=== PATIENT | female | born 1955 | race Caucasian/White ===

== ENCOUNTER 2016-06-24 00:49 | Observation (INO) | payer OTHER ==
[~2016-06-24 00:49] MED LIST: AMBI10TA PO; CYCL-36 PO; HYDR-3535 PO; LANSO15 PO; LORA1TAB PO; METO25 PO; OXYB5TAB PO; PROM25TA5 PO; RANI150 PO; REGL10TA5 PO; SENN1TAB11 PO; TRAZ50TA4 PO
[2016-06-24 00:57] VITALS: BP 148/87; PULSE 88; RESP 18; TEMP 98.4; O2SAT 98
[2016-06-24] MEDS ORDERED: HYDROmorphone HCL PF 1 MG/ML VIAL IV PUSH ONE (01:15)
[2016-06-24] MEDS ORDERED: ONDANSETRON HCL 4 MG/2 ML VIAL IV PUSH ONE (01:15)
[2016-06-24] MEDS ORDERED: LISI-515 PO (01:16)
[2016-06-24] MEDS ORDERED: METO50TA PO (01:16)
--- NOTE | 2016-06-24 02:03 | PD ---
HPI Chief Complaint: Back/ Neck Pain or Injury Time Seen by Provider: 01:58 Travel History International Travel<30 days: No Contact w/Intl Traveler<30days: No History of Present Illness HPI 60-year-old white female presents to emergency Department with complaints of intractable back pain. Patient states that she has been taking Percocet at home without relief. He has had a recent injury while lifting furniture earlier during the week. She also had a recent slip and fall within the furniture. She has exacerbation of pain bending over into the washing machine. She states the pain is in the left side radiating to her left groin. The pain is been a 10 out of 10. There are no alleviating factors. Worse with movement. No recent illness. Denies any fever or chills. No urinary or stool incontinence. No focal weakness. Positive tingling into the left groin. PFSH Past Medical History Arthritis: Yes Autoimmune Disease: No Anxiety: Yes Depression: Yes Cancer: Yes (LEFT BREAST) Cardiovascular Problems: No Diabetes: Yes Patient Takes Glucophage: No Diminished Hearing: No Endocrine: No Gastrointestinal Disorders: Yes (GERD) GERD: Yes Genitourinary: No Hepatitis: No Hiatal Hernia: No Hypertension: Yes Immune Disorder: No Musculoskeletal: Yes (RHEUMATOID ARTHRITIS, DDD NECK) Neurologic: Yes (MIGRAINES) Psychiatric: Yes (ANXIETY) Reproductive: No Respiratory: No Thyroid Disease: No Tetanus Vaccination: Unknown ?: Not Past Surgical History AICD: No Body Medical Devices: PICC LINE RIGHT ARM Gynecologic Surgery: Yes (HYSTERECTOMY) Hysterectomy: Yes Joint Replacement: Yes (RIGHT KNEE) Oral Surgery: Yes (TONSILLECTOMY) Pacemaker: No Thoracic Surgery: Yes (LEFT MASTECTOMY) Tonsillectomy: Yes Other Surgery: Yes (ABRAHAN MASTECTOMY) Social History Alcohol Use: No Tobacco Use: No Substance Use: No Allergies-Medications (Allergen,Severity, Reaction): Coded Allergies: Codeine (Verified Allergy, Unknown, 06/24/16) NAUSEA Reported Meds & Prescriptions Reported Meds & Active Scripts Active Reported Lisinopril 20 Mg Tab 20 Mg PO DAILY Metoprolol Tartrate 50 Mg Tab 50 Mg PO DAILY Lortab 10 mg/325 mg (Hydrocodone/Acetaminophen 10 mg/325 mg) 1 Tab Tab 1 Tab PO Q4-6H PRN Metoprolol Tartrate 25 mg (Metoprolol Tartrate) 25 Mg Tab 1 Tab PO AFTERNOON Lorazepam 1 Mg Tab 1 Mg PO QID Oxybutynin Chloride Er (Oxybutynin Chloride) 5 Mg Tab 5 Mg PO DAILY@0600 Zantac 150 Mg Tab (Ranitidine HCl) 150 Mg Tab 150 Mg PO BID PRN Senna Plus 8.6-50 mg (Senna/Docusate Sodium) 1 Tab Tab 2 Tab PO HS Trazodone Hcl (Trazodone HCl) 50 Mg Tab 100 Mg PO HS Flexeril (Cyclobenzaprine HCl) 10 Mg Tab 10 Mg PO HS Ambien (Zolpidem Tartrate) 10 Mg Tab 10 Mg PO HS Prevacid 15 Mg Solutab (Lansoprazole) 15 Mg Tab 30 Mg PO DAILY Phenergan (Promethazine HCl) 25 Mg Tab 25 Mg PO Q6 PRN Reglan (Metoclopramide HCl) 10 Mg Tab 10 Mg PO BID Review of Systems Except as stated in HPI: all other systems reviewed are Neg General / Constitutional: No: Fever, Chills Eyes: No: Blurred Vision HENT: No: Neck Stiffness, Neck Pain Cardiovascular: No: Chest Pain or Discomfort, Palpitations Respiratory: No: Cough, Shortness of Breath Gastrointestinal: No: Nausea, Vomiting Genitourinary: No: Dysuria, Hematuria, Incontinence Musculoskeletal: Positive: Arthralgias, Limited ROM, Pain Skin: No Rash Neurologic: Positive: Paresthesia, No: Weakness Physical Exam Narrative GENERAL: Well-developed, well-nourished in no apparent distress. Nontoxic appearing. HEAD: Normocephalic, atraumatic. EYES: Pupils equal round and reactive. Extraocular motions intact. No scleral icterus. No injection or drainage. ENT: Nose clear. Throat without erythema, tonsillar hypertrophy or exudate. Uvula midline. Airway patent. NECK: Trachea midline. Supple, nontender, moves head freely. No central bony tenderness or spasm. CARDIOVASCULAR: Regular rate and rhythm without murmurs, gallops, or rubs. RESPIRATORY: Clear to auscultation. Breath sounds equal bilaterally. No wheezes , rales, or rhonchi. GASTROINTESTINAL: Abdomen soft, non-tender, nondistended. No hepato-splenomegaly , or palpable masses. No guarding. EXTREMITIES: No clubbing, cyanosis, or edema. No joint tenderness. BACK: No central bony tenderness to palpation of dorsal lumbar spine. There is left lower paraspinal tenderness with positive straight leg raise on the left. Patient has intact gross sensation. No saddle anesthesia. Good distal pulses. Without deformity. No flank tenderness. NEUROLOGICAL: Awake, alert and oriented x 3 .Cranial nerves grossly intact. Motor and sensory grossly within normal limits. Normal speech. Data Data Last Documented VS Vital Signs Date Time Temp Pulse Resp B/P Pulse Ox O2 Delivery O2 Flow Rate FiO2 06/24/16 00:57 98.4 88 18 148/87 98 Orders Complete Blood Count With Diff (06/24/16 01:03) Comprehensive Metabolic Panel (06/24/16 01:03) Prothrombin Time / Inr (Pt) (06/24/16 01:03) Act Partial Throm Time (Ptt) (06/24/16 01:03) Iv Access Insert/Monitor (06/24/16 01:03) Ondansetron Inj (Zofran Inj) (06/24/16 01:15) Hydromorphone Pf Inj (Dilaudid Pf Inj) (06/24/16 01:15) Admit Order (Ed Use Only) (06/24/16 01:05) MDM Medical Decision Making Medical Screen Exam Complete: Yes Emergency Medical Condition: Yes Medical Record Reviewed: Yes Differential Diagnosis MDM: High Differential diagnoses: AAA,Fracture, sprain, strain, HNP, nerve or vascular injury, epidural abscess, pilonidal cyst, pyelonephritis, UTI, nephrolithiasis, ureterolithiasis Narrative Course IV access is obtained. Patient's given Zofran 4 mg IV, Dilaudid 1 mg IV. Routine laboratory tests sent for analysis. The patient has intractable back pain with lumbar radiculopathy. The patient will be admitted to observation service under Dr. Hoang. Diagnosis Primary Impression: intractable back pain with lumbar radiculopathy Victoriano Hanna Jun 24, 2016 02:03
[2016-06-24 02:27] LABS: AUTOMATED NEUTROPHIL # 15.9 TH/MM3 (1.8-7.7); BASOPHIL # 0.2 TH/MM3 (0-0.2); BASOPHIL % 1.1 % (0.0-2.0); EOSINOPHIL % 0.1 % (0.0-4.0); HEMATOCRIT 39.2 % (35.0-46.0); HEMO FLAGS DIFF FINAL; LYMPH % 9.2 % (9.0-44.0); LYMPHOCYTE # 1.7 TH/MM3 (1.0-4.8); MEAN CELL VOLUME 80.4 FL (80.0-100.0); MEAN CORPUSCULAR HEMOGLOBIN 25.6 PG (27.0-34.0); MEAN CORPUSCULAR HGB CONC 31.9 % (32.0-36.0); MONO % 1.7 % (0.0-8.0); NEUT % 87.9 % (16.0-70.0); PLATELET COUNT 315 TH/MM3 (150-450); RED BLOOD COUNT 4.88 MIL/MM3 (4.00-5.30); RED CELL DISTRIBUTION WIDTH 17.6 % (11.6-17.2); WHITE BLOOD COUNT 18.1 TH/MM3 (4.0-11.0)
[2016-06-24 02:39] LABS: PROTHROMBIN TIME - PATIENT 10.5 SEC (9.8-11.6)
[2016-06-24 02:56] LABS: ANION GAP 8 MEQ/L (5-15); AST (GOT) 14 U/L (15-37); BICARBONATE 20.6 MEQ/L (21.0-32.0); BLOOD UREA NITROGEN 20 MG/DL (7-18); CHLORIDE 110 MEQ/L (98-107); GLOMERULAR FILTRATION RATE 60 ML/MIN (>89); POTASSIUM 4.5 MEQ/L (3.5-5.1); SODIUM (NA) 139 MEQ/L (136-145)
[2016-06-24 02:59] LABS: ALKALINE PHOSPHATASE 85 U/L (45-117); ALT (GPT) 21 U/L (10-53); TOTAL BILIRUBIN ADULT 0.1 MG/DL (0.2-1.0)
[2016-06-24] MEDS ORDERED: FAMOTIDINE 20 MG TAB PO PRN (03:00)
[2016-06-24] MEDS ORDERED: INSULIN HUMAN REGULAR 1,000 UNITS/10 ML VIAL SQ ONE (03:15)
[2016-06-24 04:20] VITALS: BP 144/74; PULSE 97; RESP 20; TEMP 98.3; O2SAT 95
[2016-06-24] MEDS: HYDROmorphone HCL PF 1 MG/ML VIAL IV PUSH PRN ×4 (04:47→20:43)
[2016-06-24] MEDS: TOLTERODINE TARTRATE 2 MG CAP LA PO SCH (06:41)
[2016-06-24 07:43] VITALS: BP 133/60; PULSE 96; RESP 18; TEMP 98.2; O2SAT 92
[2016-06-24] MEDS ORDERED: LANSOPRAZOLE SOLUTAB 15 MG TAB PO SCH (09:00)
--- NOTE | 2016-06-24 09:19 | HHI.HP ---
HPI Service [facility] Primary Care Physician Isidro Ji MD Admission Diagnosis intractable back pain, lumbar radiculopathy Chief Complaint: Intractable LBP Inguinal pain Travel History International Travel<30 Days: No Contact w/Intl Traveler <30 Da: No History of Present Illness Patient is a pleasant 60-year-old female with prior history of hypertension, diet controlled diabetes, and breast cancer. Patient presented to the [facility] with complaint of intractable low back pain and pain at her left groin. This pain has been ongoing for two weeks. Patient has seen pain management, and received lumbar epidural steroid injection 2 weeks ago with relief of her pain. Pt again saw pain mgmt, Dr. Pastrana, 06/23/16 and had repeat VIVIANE. This time without improvement of her pain. Pt states that she has LBP which she has had prior. Pt now c/o pain at left groin with radiation down to her left knee. The groin pain is new and NOT typical of her prior LBP. Pt states that her pain became acutely worse 2-3 days ago after moving furniture and falling. Pt feels that the pain was also exacerbated by bending forward to use her washing machine. Patient rates the pain 10/10. Pain is worse with movement. Pt's pain is limiting her ambulation and pt has been utilizing a cane for ambulation. Pt normally does NOT require any assisted devices to ambulate. There is no loss of bowel or bladder control. Patient underwent outpatient lumbar MRI at [facility] (06/23/16) which showed mild disc bulges at L3-4, and L4-5 with suspected Left paracentral protrusion/extursion compromising the left L4 neural foramen. Review of Systems Constitutional: DENIES: Diaphoretic episodes, Fatigue, Fever, Weight gain, Weight loss, Chills, Dizziness, Change in appetite, Night Sweats Endocrine: DENIES: Heat/cold intolerance, Polydipsia, Polyuria, Polyphagia Eyes: DENIES: Blurred vision, Diplopia, Eye inflammation, Eye pain, Vision loss , Photosensitivity, Double Vision Respiratory: DENIES: Apneas, Cough, Snoring, Wheezing, Hemoptysis, Sputum production, Shortness of breath Cardiovascular: DENIES: Chest pain, Palpitations, Syncope, Dyspnea on Exertion , PND, Lower Extremity Edema, Orthopnea, Claudication Gastrointestinal: DENIES: Abdominal pain, Black stools, Bloody stools, BRB per rectum, Constipation, Diarrhea, GERD, Nausea, Reflux, Vomiting, Difficulty Swallowing, Anorexia Genitourinary: COMPLAINS OF: Dysmenorrhea, DENIES: Urinary frequency, Urinary incontinence, Urgency, Hematuria, Dysuria, Nocturia Musculoskeletal: COMPLAINS OF: Joint pain, Back pain, DENIES: Muscle aches, Stiffness, Joint Swelling, Neck pain Integumentary: DENIES: Abnormal pigmentation, Pruritus, Rash, Nail changes, Breast masses, Breast skin changes, Nipple discharge Hematologic/lymphatic: DENIES: Bruising, Lymphadenopathy Immunologic/allergic: DENIES: Eczema, Urticaria Neurologic: DENIES: Abnormal gait, Headache, Localized weakness, Paresthesias, Seizures, Speech Problems, Tremor, Poor Balance Psychiatric: DENIES: Anxiety, Confusion, Mood changes, Depression, Hallucinations, Agitation, Suicidal Ideation, Homicidal Ideation, Delusions, History of Bipolar, History of Schizophrenia Past Family Social History Past Medical History 1) hypertension 2) diabetes, diet controlled 3) left breast cancer, status post bilateral mastectomy with reconstructive surgery 4) GERD 5) migraines 6) anxiety Past Surgical History 1) bilateral mastectomy secondary to left breast cancer 2) bilateral breast reconstructive surgery 3) tonsillectomy 4) hysterectomy sparing the ovaries 5) history of PICC line at right arm 6) total knee arthroplasty, right Reported Medications Reported Meds & Active Scripts Active Reported Lisinopril 20 Mg Tab 20 Mg PO DAILY Metoprolol Tartrate 50 Mg Tab 50 Mg PO DAILY Lortab 10 mg/325 mg (Hydrocodone/Acetaminophen 10 mg/325 mg) 1 Tab Tab 1 Tab PO Q4-6H PRN Metoprolol Tartrate 25 mg (Metoprolol Tartrate) 25 Mg Tab 1 Tab PO AFTERNOON Lorazepam 1 Mg Tab 1 Mg PO QID Oxybutynin Chloride Er (Oxybutynin Chloride) 5 Mg Tab 5 Mg PO DAILY@0600 Zantac 150 Mg Tab (Ranitidine HCl) 150 Mg Tab 150 Mg PO BID PRN Senna Plus 8.6-50 mg (Senna/Docusate Sodium) 1 Tab Tab 2 Tab PO HS Trazodone Hcl (Trazodone HCl) 50 Mg Tab 100 Mg PO HS Flexeril (Cyclobenzaprine HCl) 10 Mg Tab 10 Mg PO HS Ambien (Zolpidem Tartrate) 10 Mg Tab 10 Mg PO HS Prevacid 15 Mg Solutab (Lansoprazole) 15 Mg Tab 30 Mg PO DAILY Phenergan (Promethazine HCl) 25 Mg Tab 25 Mg PO Q6 PRN Reglan (Metoclopramide HCl) 10 Mg Tab 10 Mg PO BID Allergies: Coded Allergies: Codeine (Verified Allergy, Unknown, 06/24/16) NAUSEA Family History Noncontributory Social History - - Denies tobacco use - Denies alcohol use - Denies illicit street drugs Physical Exam Vital Signs Vital Signs Date Time Temp Pulse Resp B/P Pulse Ox O2 Delivery O2 Flow Rate FiO2 06/24/16 07:43 98.2 96 18 133/60 92 06/24/16 04:20 98.3 97 20 144/74 95 06/24/16 00:57 98.4 88 18 148/87 98 Physical Exam GENERAL: This is a well-nourished, well-developed patient, in no apparent distress. SKIN: No rashes, ecchymoses or lesions. Cool and dry. HEAD: Atraumatic. Normocephalic. No temporal or scalp tenderness. EYES: Pupils equal round and reactive. Extraocular motions intact. No scleral icterus. No injection or drainage. ENT: Nose without bleeding, purulent drainage or septal hematoma. Throat without erythema, tonsillar hypertrophy or exudate. Uvula midline. Airway patent. NECK: Trachea midline. No JVD or lymphadenopathy. Supple, nontender, no meningeal signs. CARDIOVASCULAR: Regular rate and rhythm without murmurs, gallops, or rubs. RESPIRATORY: Clear to auscultation. Breath sounds equal bilaterally. No wheezes , rales, or rhonchi. GASTROINTESTINAL: Abdomen soft, non-tender, nondistended. No hepato-splenomegaly , or palpable masses. No guarding. MUSCULOSKELETAL: Extremities without clubbing, cyanosis, or edema. No joint tenderness, effusion, or edema noted. No calf tenderness. Negative Homans sign bilaterally. NEUROLOGICAL: Awake and alert. Cranial nerves II through XII intact. Motor and sensory grossly within normal limits. Five out of 5 muscle strength in all muscle groups. Normal speech. Laboratory Laboratory Tests Test 06/24/16 02:15 White Blood Count 18.1 Red Blood Count 4.88 Hemoglobin 12.5 Hematocrit 39.2 Mean Corpuscular Volume 80.4 Mean Corpuscular Hemoglobin 25.6 Mean Corpuscular Hemoglobin 31.9 Concent Red Cell Distribution Width 17.6 Platelet Count 315 Mean Platelet Volume 8.5 Neutrophils (%) (Auto) 87.9 Lymphocytes (%) (Auto) 9.2 Monocytes (%) (Auto) 1.7 Eosinophils (%) (Auto) 0.1 Basophils (%) (Auto) 1.1 Neutrophils # (Auto) 15.9 Lymphocytes # (Auto) 1.7 Monocytes # (Auto) 0.3 Eosinophils # (Auto) 0.0 Basophils # (Auto) 0.2 CBC Comment DIFF FINAL Differential Comment Prothrombin Time 10.5 Prothromb Time International 1.0 Ratio Activated Partial 27.0 Thromboplast Time Sodium Level 139 Potassium Level 4.5 Chloride Level 110 Carbon Dioxide Level 20.6 Anion Gap 8 Blood Urea Nitrogen 20 Creatinine 0.95 Estimat Glomerular Filtration 60 Rate Random Glucose 270 Calcium Level 7.5 Total Bilirubin 0.1 Aspartate Amino Transf 14 (AST/SGOT) Alanine Aminotransferase 21 (ALT/SGPT) Alkaline Phosphatase 85 Total Protein 5.7 Albumin 2.9 Result Diagram: 06/24/1621406/24/16214 Septic Shock Reassessment Heart: Regular rate and rhythm Lungs: Clear Skin: Warm Peripheral Pulses: Bounding Right Radial Bounding Left Radial Bounding Right Popliteal Bounding Left Popliteal Bounding Right Dorsalis Pedis Bounding Left Dorsalis Pedis Bounding Right Posterior Tibial Bounding Left Posterior Tibial Capillary Refill: Brisk Assessment and Plan Problem List: (1) Intractable low back pain Status: Acute Plan: - pt has had ongoing LBP for several months - Increased LBP with radiation to the left groin for last 2-3 days since moving furniture and bending over washing machine - Pt had recent VIVIANE with pain mgmt - Pt had lumbar MRI (06/23/16) at [facility] showing - Pain unrelieved by percocet outpt - prn percocet/dilaudid - request evaluation by Neurosurgery - request PT evaluation (2) Pain in the groin Status: Acute Plan: - see above - H/O ovarian cysts - h/o breast CA - will obtain pelvic US (3) Leukocytosis Status: Acute Plan: - unclear etiology - NO fever - obtain UA/Cx - obtain CXR - if fever, will obtain blood cultures (4) HTN (hypertension) Status: Acute Plan: - stable - lisinopril, metoprolol (5) DM2 (diabetes mellitus, type 2) Status: Chronic Plan: - diet controlled - pt with hyperglycemia, recent VIVIANE - SSI (6) H/O malignant neoplasm of female breast Status: Acute Plan: - s/p b/l mastectomy & reconstructive surgery (7) GERD (gastroesophageal reflux disease) Status: Acute Plan: - PPI (8) Anxiety Status: Chronic Plan: - ativan prn (9) Insomnia Status: Acute Plan: - madelaine quesada Physician Certification 2 Midnight Certification Type: Admission for Inpatient Services Order for Inpatient Services The services are ordered in accordance with Medicare regulations or non- Medicare payer requirements, as applicable. In the case of services not specified as inpatient-only, they are appropriately provided as inpatient services in accordance with the 2-midnight benchmark. Estimated LOS (days): 3 3 days is the estimated time the patient will need to remain in the hospital, assuming treatment plan goals are met and no additional complications. Post-Hospital Plan: Home Problem Qualifiers (1) Pain in the groin: Qualified Code: R10.32 - Pain in the groin, left (2) Leukocytosis: Qualified Code: D72.829 - Leukocytosis, unspecified type (3) HTN (hypertension): Qualified Code: I10 - Essential hypertension (4) DM2 (diabetes mellitus, type 2): Qualified Code: E11.8 - Type 2 diabetes mellitus with complication, without long-term current use of insulin (5) GERD (gastroesophageal reflux disease): Qualified Code: K21.9 - Gastroesophageal reflux disease, esophagitis presence not specified (6) Insomnia: Qualified Code: G47.00 - Insomnia, unspecified type Truman Hoang DO Jun 24, 2016 09:19
[2016-06-24] MEDS: LISINOPRIL 20 MG TAB PO SCH (09:31)
[2016-06-24] MEDS: LORazepam 1 MG TAB PO SCH ×4 (09:31→20:41)
[2016-06-24] MEDS: LANSOPRAZOLE SOLUTAB 30 MG TAB PO SCH (09:31)
[2016-06-24] MEDS: METOPROLOL TARTRATE 50 MG TAB PO SCH (09:31)
[2016-06-24] MEDS: METOCLOPRAMIDE HCL 10 MG TAB PO SCH ×2 (09:31→20:41)
--- NOTE | 2016-06-24 10:20 | RADRPT ---
EXAM DATE/TIME: 06/24/2016 09:43 [facility] COMPARISON: CHEST SINGLE AP, May 07, 2013, 23:29. INDICATIONS : Leukocytosis, r/o infection MEDICAL HISTORY : Carcinoma, breast. SURGICAL HISTORY : double mastectomy, breast implants ENCOUNTER: Initial ACUITY: 1 day PAIN SCORE: 0/10 LOCATION: Bilateral chest FINDINGS: Single AP view of the chest. The lungs are clear. Cardiomediastinal silhouette within normal limits. No evidence of pleural effusion or pneumothorax. CONCLUSION: No acute cardiopulmonary disease identified. Josr Wolfe MD on June 24, 2016 at 10:09 Board Certified Radiologist. This report was verified electronically.
[2016-06-24 10:38] LABS: AUTOMATED NEUTROPHIL # 18.6 TH/MM3 (1.8-7.7); BASOPHIL # 0.1 TH/MM3 (0-0.2); BASOPHIL % 0.5 % (0.0-2.0); HEMATOCRIT 39.1 % (35.0-46.0); HEMO FLAGS DIFF FINAL; LYMPH % 9.9 % (9.0-44.0); LYMPHOCYTE # 2.1 TH/MM3 (1.0-4.8); MEAN CELL VOLUME 81.2 FL (80.0-100.0); MEAN CORPUSCULAR HEMOGLOBIN 26.2 PG (27.0-34.0); MEAN CORPUSCULAR HGB CONC 32.2 % (32.0-36.0); MONO % 3.5 % (0.0-8.0); NEUT % 86.1 % (16.0-70.0); PLATELET COUNT 335 TH/MM3 (150-450); RED BLOOD COUNT 4.81 MIL/MM3 (4.00-5.30); RED CELL DISTRIBUTION WIDTH 17.6 % (11.6-17.2); WHITE BLOOD COUNT 21.7 TH/MM3 (4.0-11.0)
[2016-06-24] MEDS ORDERED: TRIAMCINOLONE ACETONIDE 40 MG/ML VIAL ONE (11:10)
[2016-06-24 11:17] LABS: BLOOD, URINE SMALL (NEG); GLUCOSE,URINE TRACE mg/dL (NEG); KETONE, URINE NEG (NEG); NITRITE,URINE NEG (NEG); PH, URINE 6.5 (5.0-8.5); SQUAMOUS EPITHELIAL CELL URINE <1 /hpf (0-5); URINE COLOR LIGHT-YELLOW (YELLW/STRAW)
[2016-06-24 11:18] LABS: COMMENT (UR) CULT NOT INDICATED; CULTURE IF INDICATED CULT NOT INDICATED
[2016-06-24] MEDS ORDERED: IOHEXOL 300 MG/ML 50 ML BTL (for RAD DIAG) ONE (11:30)
--- NOTE | 2016-06-24 11:33 | PD.RAD ---
Post Procedure Progress Note Pre Procedure Diagnosis: (1) Intractable low back pain Post Procedure Diagnosis: (1) Intractable low back pain Procedure Date: Jun 24, 2016 Supervising Radiologist: Justus Wyatt Proceduralist/Assist: RT Elijah(R), RT Amy(R)(CV) Anesthesia: Local Plan of Activity Patient to Unit: Other (ED) Patient Condition: Good See PACS Report for procedural detail/treatment Spinal Procedure Nerve Root Injection L4 (left) Findings: Preprocedural pain: 11/04 Post: 08/04 Justus Wyatt MD Jun 24, 2016 11:33
[2016-06-24 12:05] VITALS: BP 124/72; PULSE 79; RESP 19; TEMP 97.7; O2SAT 93
[2016-06-24] MEDS: ONDANSETRON HCL 4 MG/2 ML VIAL IV PUSH PRN (12:12)
[2016-06-24] MEDS: oxyCODONE/ACETAMINOPHEN 10 MG/325 MG TAB PO PRN (12:17)
[2016-06-24] MEDS: INSULIN ASPART SUPPLEMENTAL SCALE SQ SCH ×3 (12:17→20:43)
--- NOTE | 2016-06-24 12:57 | PD.CONS ---
[facility] Service Neurosurg Consult Requested By Dr fay Reason for Consult lumbar radiculopathy Primary Care Physician Isidro Ji MD History of Present Illness This is a 60-year-old female with history of arterial hypertension, diet controlled diabetes, and breast cancer who presented to [place] [facility] with intractable low back pain and left groin pain. She has seen a doctor pain management, and received lumbar epidural steroid injection 2 weeks ago with temporary relief of her pain. She saw Dr. Pastrana, 06/23/16 and had repeat VIVIANE without improvement of her pain. She has had LBP before. She has now pain at left groin with radiation down to her left knee. The groin pain is new and NOT typical of her prior LBP. Pt states that her pain became acutely worse 2-3 days ago after moving furniture and after falling. Her pain was also exacerbated by bending forward to use her washing machine. She rates the pain as 10/10, worse with movement. Her pain is limiting her ambulation and she has been utilizing a cane for ambulation. Denies loss of bowel or bladder or bowel control. Denies fcal weakness or sensory loss She underwent outpatient lumbar MRI at [facility] (06/23/16) which showed mild disc bulges at L3-4, and L4-5 with a suspected Left paracentral protrusion/extrusionat L4-5. Neurosurgical consultation was requested. Review of Systems DENIES: Diaphoretic episodes, Fatigue, Fever, Weight gain, Weight loss, Chills, Dizziness, Change in appetite, Night Sweats Endocrine: DENIES: Heat/cold intolerance, Polydipsia, Polyuria, Polyphagia Eyes: DENIES: Blurred vision, Diplopia, Eye inflammation, Eye pain, Vision loss , Photosensitivity, Double Vision Respiratory: DENIES: Apneas, Cough, Snoring, Wheezing, Hemoptysis, Sputum production, Shortness of breath Cardiovascular: DENIES: Chest pain, Palpitations, Syncope, Dyspnea on Exertion , PND, Lower Extremity Edema, Orthopnea, Claudication Gastrointestinal: DENIES: Abdominal pain, Black stools, Bloody stools, BRB per rectum, Constipation, Diarrhea, GERD, Nausea, Reflux, Vomiting, Difficulty Swallowing, Anorexia Genitourinary: COMPLAINS OF: Dysmenorrhea, DENIES: Urinary frequency, Urinary incontinence, Urgency, Hematuria, Dysuria, Nocturia Musculoskeletal: COMPLAINS OF: Joint pain, Back pain, DENIES: Muscle aches, Stiffness, Joint Swelling, Neck pain Integumentary: DENIES: Abnormal pigmentation, Pruritus, Rash, Nail changes, Breast masses, Breast skin changes, Nipple discharge Hematologic/lymphatic: DENIES: Bruising, Lymphadenopathy Immunologic/allergic: DENIES: Eczema, Urticaria Neurologic: DENIES: Abnormal gait, Headache, Localized weakness, Paresthesias, Seizures, Speech Problems, Tremor, Poor Balance Psychiatric: DENIES: Anxiety, Confusion, Mood changes, Depression, Hallucinations, Agitation, Suicidal Ideation, Homicidal Ideation, Delusions, History of Bipolar, History of Schizophrenia Past Family Social History Allergies: Coded Allergies: Codeine (Verified Allergy, Unknown, 06/24/16) NAUSEA Past Medical History 1) hypertension 2) diabetes, diet controlled 3) left breast cancer, status post bilateral mastectomy with reconstructive surgery 4) GERD 5) migraines 6) anxiety Past Surgical History 1) bilateral mastectomy secondary to left breast cancer 2) bilateral breast reconstructive surgery 3) tonsillectomy 4) hysterectomy sparing the ovaries 5) history of PICC line at right arm 6) total knee arthroplasty, right Reported Medications Lisinopril 20 Mg Tab 20 Mg PO DAILY Metoprolol Tartrate 50 Mg Tab 50 Mg PO DAILY Lortab 10 mg/325 mg (Hydrocodone/Acetaminophen 10 mg/325 mg) 1 Tab Tab 1 Tab PO Q4-6H PRN Metoprolol Tartrate 25 mg (Metoprolol Tartrate) 25 Mg Tab 1 Tab PO AFTERNOON Lorazepam 1 Mg Tab 1 Mg PO QID Oxybutynin Chloride Er (Oxybutynin Chloride) 5 Mg Tab 5 Mg PO DAILY@0600 Zantac 150 Mg Tab (Ranitidine HCl) 150 Mg Tab 150 Mg PO BID PRN Senna Plus 8.6-50 mg (Senna/Docusate Sodium) 1 Tab Tab 2 Tab PO HS Trazodone Hcl (Trazodone HCl) 50 Mg Tab 100 Mg PO HS Flexeril (Cyclobenzaprine HCl) 10 Mg Tab 10 Mg PO HS Ambien (Zolpidem Tartrate) 10 Mg Tab 10 Mg PO HS Prevacid 15 Mg Solutab (Lansoprazole) 15 Mg Tab 30 Mg PO DAILY Phenergan (Promethazine HCl) 25 Mg Tab 25 Mg PO Q6 PRN Reglan (Metoclopramide HCl) 10 Mg Tab 10 Mg PO BID Active Ordered Medications Current Medications Ondansetron HCl (Zofran Inj) 4 mg ONCE ONCE IV PUSH Last administered on 01:15; Start 06/24/16 at 01:15; Stop 06/24/16 at 01:16; Status DC Hydromorphone HCl (Dilaudid Pf Inj) 1 mg ONCE ONCE IV PUSH Last administered on 06/24/16 01:15; Start 06/24/16 at 01:15; Stop 06/24/16 at 01:16; Status DC Hydromorphone HCl (Dilaudid Pf Inj) 1 mg Q4H PRN IV PUSH PAIN GREATER THAN 5 Last administered on 06/24/16 09:32; Start 06/24/16 at 02:00 Oxycodone/ Acetaminophen (Percocet 10-325 Mg) 1 tab Q4H PRN PO PAIN SCALE 1 TO 4 Last administered on 06/24/16 12:17; Start 06/24/16 at 02:00 Ondansetron HCl (Zofran Inj) 4 mg Q6HR PRN IV PUSH NAUSEA Last administered on 06/24/16 12:12; Start 06/24/16 at 02:45 Cyclobenzaprine HCl (Flexeril) 10 mg HS PO ; Start 06/24/16 at 21:00 Senna/Docusate Sodium (Lola-Colace) 2 tab HS PO ; Start 06/24/16 at 21:00 Lansoprazole (Prevacid Odt) 30 mg DAILY PO ; Start 06/24/16 at 09:00; Stop 06/24 at 09:14; Status DC Lisinopril (Prinivil) 20 mg DAILY PO Last administered on 06/24/16 09:31; Start 06/24/16 at 09:00 Lorazepam (Ativan) 1 mg QID PO Last administered on 06/24/16 12:17; Start at 09:00 Metoclopramide HCl (Reglan) 10 mg BID PO Last administered on 06/24/16 09:31; Start 06/24/16 at 09:00 Metoprolol Tartrate (Lopressor) 50 mg DAILY PO Last administered on 06/24/16 09:31; Start 06/24/16 at 09:00 Metoprolol Tartrate (Lopressor) 25 mg DAILY@1600 PO ; Start 06/24/16 at 16:00 Famotidine (Pepcid) 20 mg BID PRN PO GERD; Start 06/24/16 at 03:00 Trazodone HCl (Desyrel) 100 mg HS PO ; Start 06/24/16 at 21:00 Zolpidem Tartrate (Ambien) 10 mg HS PO ; Start 06/24/16 at 21:00 Tolterodine Tartrate (Detrol La) 2 mg DAILY@0600 PO Last administered on 06:41; Start 06/24/16 at 06:00 Insulin Human Regular (NovoLIN R INJ) 4 units ONCE ONCE SQ Last administered on 06/24/16 03:15; Start 06/24/16 at 03:15; Stop 06/24/16 at 03:16; Status DC Lansoprazole (Prevacid Odt) 30 mg DAILY PO Last administered on 06/24/16 09:31 ; Start 06/24/16 at 10:00 Insulin Aspart (NovoLOG SUPPLEMENTAL SCALE) 1 ACHS SLIDING SCALE SQ Last administered on 06/24/16 12:17; Start 06/24/16 at 11:00 Triamcinolone Acetonide (Kenalog-40 Inj) 40 mg STK-MED ONCE .ROUTE ; Start 06/24 at 11:10; Stop 06/24/16 at 11:11; Status DC Iohexol (Omnipaque 300 Inj) 1 ml STK-MED ONCE .XX ; Start 06/24/16 at 11:30; Stop 06/24/16 at 11:31; Status DC Family History Noncontributory Social History - Denies tobacco use - Denies alcohol use - Denies illicit drug use Physical Exam Vital Signs Vital Signs Date Time Temp Pulse Resp B/P Pulse Ox O2 Delivery O2 Flow Rate FiO2 06/24/16 12:05 97.7 79 19 124/72 93 06/24/16 07:43 98.2 96 18 133/60 92 06/24/16 04:20 98.3 97 20 144/74 95 06/24/16 00:57 98.4 88 18 148/87 98 Physical Exam Regarding the patients ulnar neuropathy, I recommend avoiding recurrent trauma to the nerve at the dorsal surface of the elbows. A surgical transposition of the ulnar nerve should be considered as a last resort. Laboratory Laboratory Tests Test 06/24/16 06/24/16 06/24/16 02:15 10:27 10:50 White Blood Count 18.1 21.7 Red Blood Count 4.88 4.81 Hemoglobin 12.5 12.6 Hematocrit 39.2 39.1 Mean Corpuscular Volume 80.4 81.2 Mean Corpuscular Hemoglobin 25.6 26.2 Mean Corpuscular Hemoglobin 31.9 32.2 Concent Red Cell Distribution Width 17.6 17.6 Platelet Count 315 335 Mean Platelet Volume 8.5 8.2 Neutrophils (%) (Auto) 87.9 86.1 Lymphocytes (%) (Auto) 9.2 9.9 Monocytes (%) (Auto) 1.7 3.5 Eosinophils (%) (Auto) 0.1 0.0 Basophils (%) (Auto) 1.1 0.5 Neutrophils # (Auto) 15.9 18.6 Lymphocytes # (Auto) 1.7 2.1 Monocytes # (Auto) 0.3 0.8 Eosinophils # (Auto) 0.0 0.0 Basophils # (Auto) 0.2 0.1 CBC Comment DIFF FINAL DIFF FINAL Differential Comment Prothrombin Time 10.5 Prothromb Time International 1.0 Ratio Activated Partial 27.0 Thromboplast Time Sodium Level 139 Potassium Level 4.5 Chloride Level 110 Carbon Dioxide Level 20.6 Anion Gap 8 Blood Urea Nitrogen 20 Creatinine 0.95 Estimat Glomerular Filtration 60 Rate Random Glucose 270 Calcium Level 7.5 Total Bilirubin 0.1 Aspartate Amino Transf 14 (AST/SGOT) Alanine Aminotransferase 21 (ALT/SGPT) Alkaline Phosphatase 85 Total Protein 5.7 Albumin 2.9 Urine Color LIGHT-YELLOW Urine Turbidity CLEAR Urine pH 6.5 Urine Specific Winters 1.014 Urine Protein NEG Urine Glucose (UA) TRACE Urine Ketones NEG Urine Occult Blood SMALL Urine Nitrite NEG Urine Bilirubin NEG Urine Urobilinogen LESS THAN 2.0 Urine Leukocyte Esterase NEG Urine RBC 2 Urine WBC LESS THAN 1 Urine Squamous Epithelial <1 Cells Microscopic Urinalysis Comment CULT NOT INDICATED Result Diagram: 06/24/16 1027 06/24/16 0215 Imaging I reviewed her MRI of the lumbar spine done 06/23/16 I reviewed her MRI of the sacrum done 06/23/16 Attending Statement I have reviewed her clinical and further studies. neuro checks in a serial fashion. I have discussed the alternative methods of treatment including, conservative management, pain management by an interventional pain medicine physician, or a surgical decompression, which should always be a last resort. She has a left foraminal disk herniation, which does not completely correlate with her symptoms of groin pain. I recommend a trial of a L4 nerve root injection. Will attempt to maximize her nonoperative treatment. Respiratory. pulmonary toilette, nasotracheal suction, and breathing treatments with nebulizers. PT and OT eval Nutrition. ADA diet Renal. monitor closely urine output, BUN and creatinine DM. Monitor serial Acu checks and SSI for tight control ID monitor for signs of infection Protonix for stress ulcer prophylaxis Kamron hose and SCD's for DVT prophylaxis Discussed [facility] Zane Estes MD Jun 24, 2016 12:57
--- NOTE | 2016-06-24 13:49 | RADRPT ---
EXAM DATE/TIME: 06/24/2016 11:17 [facility] COMPARISON: No previous studies available for comparison. INDICATIONS : Patient with intractable lower back pain in need of left L4 steroidal nerve root injection. MEDICAL HISTORY : ) hypertension 2) diabetes, diet controlled 3) left breast cancer, status post bilateral mastectomy with reconstructive surgery 4) GERD 5) migraines 6) anxiety SURGICAL HISTORY : 1) bilateral mastectomy secondary to left breast cancer 2) bilateral breast reconstructive surgery 3) tonsillectomy 4) hysterectomy sparing the ovaries 5) history of PICC line at right arm 6) total knee arthroplasty, right ENCOUNTER: Initial ACUITY: 3 days PAIN SCORE: 8/10 LOCATION: Left lower back, radiating down left leg FLUORO TIME: 2.1 minutes IMAGE SERIES: 2 CONTRAST: 1 cc Omnipaque (iohexol) 300 ACCESS LEVEL: Left L4 MEDICATIONS: 1.) 40 mg triamcinolone (Kenalog) IA 2.) 1 cc Lidocaine IA RESPONSE: Pre procedure pain level was 8/10. Post procedure pain level was 5/10. PROCEDURE : 1. Fluoroscopically guided nerve root injection. The risks, benefits and alternatives to the procedure were explained and verbal and written consent w as obtained. The site was prepped in sterile fashion. Full sterile technique was used, including ca p, mask, sterile gloves and gown and a large sterile sheet. Hand hygiene and 2% chlorhexidine and/or betadine/alcohol prep was utilized per protocol for cutaneous antisepsis. The skin and subcutaneous tissues were infiltrated with local anesthetic solution. With fluoroscopic guidance the targeted nerve root was localized and positive contrast was injected t o confirm epidural spread. Following this the prescribed medication was injected surrounding the ner ve root sleeve. The patient's preprocedure pain and post procedure pain levels were recorded. CONCLUSION: Uncomplicated fluoroscopically guided nerve root injection as above. Justus Wyatt MD on June 24, 2016 at 13:47 Board Certified Radiologist. This report was verified electronically.
[2016-06-24 15:42] VITALS: BP 113/60; PULSE 85; RESP 18; TEMP 97.8; O2SAT 94
[2016-06-24] MEDS ORDERED: METOPROLOL TARTRATE 25 MG TAB PO SCH (16:00)
--- NOTE | 2016-06-24 16:09 | RADRPT ---
EXAM DATE/TIME: 06/24/2016 15:12 [facility] COMPARISON: No previous studies available for comparison. INDICATIONS : Left groin pain and history of ovarian cysts. MEDICAL HISTORY : Carcinoma, breast. Ovarian cysts. SURGICAL HISTORY : Mastectomy, bilateral. ENCOUNTER: Initial ACUITY: 2 days PAIN SCORE: 5/10 LOCATION: Bilateral pelvis MEASUREMENTS: UTERUS: Surgically absent ENDOMETRIAL STRIPE: RIGHT OVARY: 2.4 x 2.2 x 1.3 cm LEFT OVARY: Non visualized FINDINGS: UTERUS: Not identified. Consistent with history of hysterectomy. RIGHT OVARY: Ovary contains no mass or significant cystic lesion. LEFT OVARY: Not visualized. MISCELLANEOUS: No free fluid. CONCLUSION: Status post hysterectomy. Left ovary not visualized. Right ovary within normal limits. Josr Wolfe MD on June 24, 2016 at 16:07 Board Certified Radiologist. This report was verified electronically.
[2016-06-24 20:36] VITALS: BP 106/55; PULSE 80; RESP 20; TEMP 98.7; O2SAT 93
[2016-06-24] MEDS ORDERED: DOCUSATE SODIUM 50 MG/SENNA 8.6 MG TAB PO SCH (21:00)
[2016-06-24] MEDS ORDERED: CYCLOBENZAPRINE HCL 10 MG TAB PO SCH (21:00)
[2016-06-24] MEDS ORDERED: ZOLPIDEM TARTRATE 10 MG TAB PO SCH (21:00)
[2016-06-24] MEDS ORDERED: traZODone HCL 50 MG TAB PO SCH (21:00)
[2016-06-25 00:19] VITALS: BP 118/59; PULSE 80; RESP 16; TEMP 97.8; O2SAT 93
[2016-06-25 04:35] VITALS: BP 121/73; PULSE 84; RESP 16; TEMP 98.6; O2SAT 93
[2016-06-25] MEDS: HYDROmorphone HCL PF 1 MG/ML VIAL IV PUSH PRN (05:22)
[2016-06-25] MEDS: TOLTERODINE TARTRATE 2 MG CAP LA PO SCH (05:22)
[2016-06-25] MEDS: ONDANSETRON HCL 4 MG/2 ML VIAL IV PUSH PRN (05:34)
[2016-06-25] MEDS: INSULIN ASPART SUPPLEMENTAL SCALE SQ SCH ×2 (05:34→11:52)
[2016-06-25 07:59] VITALS: BP 119/60; PULSE 81; RESP 19; TEMP 98.3; O2SAT 93
--- NOTE | 2016-06-25 09:14 | HHI.DCPOC ---
Discharge Care Plan Diagnosis: (1) Intractable low back pain (2) Insomnia (3) DM2 (diabetes mellitus, type 2) (4) Anxiety (5) Leukocytosis (6) Pain in the groin (7) HTN (hypertension) (8) GERD (gastroesophageal reflux disease) (9) H/O malignant neoplasm of female breast Goals to Promote Your Health * To prevent worsening of your condition and complications * To maintain your health at the optimal level Directions to Meet Your Goals Take your medications as prescribed Follow your dietary instruction Follow activity as directed Keep your appointments as scheduled Take your immunizations and boosters as scheduled If your symptoms worsen call your PCP, if no PCP go to Urgent Care Center or Emergency Room Smoking is Dangerous to Your Health. Avoid second hand smoke Call the 24-hour hour crisis hotline for domestic abuse at Truman Hoang DO Jun 25, 2016 09:14
[2016-06-25] MEDS: LORazepam 1 MG TAB PO SCH ×2 (09:28→14:12)
[2016-06-25] MEDS: LANSOPRAZOLE SOLUTAB 30 MG TAB PO SCH (09:28)
[2016-06-25] MEDS: METOCLOPRAMIDE HCL 10 MG TAB PO SCH (09:28)
[2016-06-25] MEDS: METOPROLOL TARTRATE 50 MG TAB PO SCH (09:28)
[2016-06-25] MEDS: LISINOPRIL 20 MG TAB PO SCH (09:28)
[2016-06-25] MEDS: oxyCODONE/ACETAMINOPHEN 10 MG/325 MG TAB PO PRN (09:30)
--- NOTE | 2016-06-25 09:35 | HHI.PR ---
Subjective Remarks Pt reports that pain at lower back and left groin has been improved since nerve root injection yesterday (06/24/16) Objective Vitals Vital Signs Date Time Temp Pulse Resp B/P Pulse Ox O2 Delivery O2 Flow Rate FiO2 06/25/16 07:59 98.3 81 19 119/60 93 06/25/16 05:56 18 06/25/16 04:35 98.6 84 16 121/73 93 06/25/16 00:19 97.8 80 16 118/59 93 06/24/16 20:36 98.7 80 20 106/55 93 06/24/16 15:42 97.8 85 18 113/60 94 06/24/16 12:05 97.7 79 19 124/72 93 06/24/16 06/24/16 06/25/16 15:00 23:00 07:00 Intake Total 240 ml 240 ml Balance 240 ml 240 ml Intake Oral 240 ml 240 ml # Voids 1 3 Result Diagram: 06/24/16 1027 06/24/16 0215 Imaging Last Impressions Pelvis Ultrasound 06/24/16 0000 Signed Impressions: Service Date/Time: May 15:12 - CONCLUSION: Status post hysterectomy. Left ovary not visualized. Right ovary within normal limits. Josr Wolfe MD Nerve Block 06/24/16 0000 Signed Impressions: Service Date/Time: May 11:17 - CONCLUSION: Uncomplicated fluoroscopically guided nerve root injection as above. Justus Wyatt MD Chest X-Ray 06/24/16 0000 Signed Impressions: Service Date/Time: May 09:43 - CONCLUSION: No acute cardiopulmonary disease identified. Josr Wolfe MD Objective Remarks GENERAL: This is a well-nourished, well-developed patient, in no apparent distress. CARDIOVASCULAR: Regular rate and rhythm without murmurs, gallops, or rubs. RESPIRATORY: Clear to auscultation. Breath sounds equal bilaterally. No wheezes , rales, or rhonchi. GASTROINTESTINAL: Abdomen soft, non-tender, nondistended. Normal active bowel sounds MUSCULOSKELETAL: Extremities without clubbing, cyanosis, or edema. NEURO: Alert & Oriented x4 to person, place, time, situation. Moves all ext x4 A/P Problem List: (1) Intractable low back pain Status: Acute Plan: - improved from admission - comgmt with Neurosurgery - pt has had ongoing LBP for several months - Increased LBP with radiation to the left groin for last 2-3 days since moving furniture and bending over washing machine - Pt had recent VIVIANE with pain mgmt 2 weeks ago & then 06/23/16 - Pt had lumbar MRI (06/23/16) at [facility] showed mild disc bulges at L3-4, and L4-5 with a suspected Left paracentral protrusion/extrusionat L4-5. - Pt underwent Left L4 nerve root block with IR, Dr. Wyatt, (06/24/16) - Pt received prn IV dilaudid - pain medication changed back to PO percocet and pt remained stable - PT - discharge to home this evening - f/u with PCP, Dr. Isidro Ji in 1 week - f/u with Neurosurgery, Dr. Zane Garcia, in 2 weeks (2) Pain in the groin Status: Acute Plan: - see above - H/O ovarian cysts - h/o breast CA - pelvic US (06/24/16) --> previous hysterectomy, left ovary NOT seen, right ovary WNL (3) Leukocytosis Status: Acute Plan: - likely d/t multiple VIVIANE and decadron - WBC 18.1 (06/24/16) - WBC 21.7 (06/24/16) - NO fever - UA/Cx --> negative study - CXR (06/24/16) --> NO infiltrate (4) HTN (hypertension) Status: Acute Plan: - stable - lisinopril, metoprolol (5) DM2 (diabetes mellitus, type 2) Status: Chronic Plan: - diet controlled - pt with hyperglycemia, recent VIVIANE - SSI (6) H/O malignant neoplasm of female breast Status: Acute Plan: - s/p b/l mastectomy & reconstructive surgery (7) GERD (gastroesophageal reflux disease) Status: Acute Plan: - PPI (8) Anxiety Status: Chronic Plan: - ativan prn (9) Insomnia Status: Acute Plan: - trazodone, ambien Problem Qualifiers (1) Pain in the groin: Qualified Code: R10.32 - Pain in the groin, left (2) Leukocytosis: Qualified Code: D72.829 - Leukocytosis, unspecified type (3) HTN (hypertension): Qualified Code: I10 - Essential hypertension (4) DM2 (diabetes mellitus, type 2): Qualified Code: E11.8 - Type 2 diabetes mellitus with complication, without long-term current use of insulin (5) GERD (gastroesophageal reflux disease): Qualified Code: K21.9 - Gastroesophageal reflux disease, esophagitis presence not specified (6) Insomnia: Qualified Code: G47.00 - Insomnia, unspecified type Truman Hoang DO Jun 25, 2016 09:34
[2016-06-25 11:40] VITALS: BP 102/53; PULSE 63; RESP 19; TEMP 98.4; O2SAT 92
== END 2016-06-25 17:59 | disposition home or self-care (01) ==
LOC: NEPB 00:49 → NEDA 01:08 → NEPFCDU 03:52
PROVIDERS: ADMIT Hospitalist; ATTEND Hospitalist
DX: M54.16 Radiculopathy, lumbar region (principal); I10 Essential (primary) hypertension; E11.65 Type 2 diabetes mellitus with hyperglycemia; K21.0 Gastro-esophageal reflux disease with esophagitis; G47.00 Insomnia, unspecified; G43.909 Migraine, unspecified, not intractable, without status migrainosus; F41.9 Anxiety disorder, unspecified; R10.30 Lower abdominal pain, unspecified; D72.829 Elevated white blood cell count, unspecified; F32.9 Major depressive disorder, single episode, unspecified; M06.9 Rheumatoid arthritis, unspecified; Z85.3 Personal history of malignant neoplasm of breast; Z90.13 Acquired absence of bilateral breasts and nipples; Z96.651 Presence of right artificial knee joint; Z90.710 Acquired absence of both cervix and uterus; Z88.5 Allergy status to narcotic agent
CPT/HCPCS: 64483; 71010; 76830; 76856; 80053; 81001; 82948; 85025; 85610; 85730; 99284; G0378; J1170; J1815; J2405; J3301; Q9967

== ENCOUNTER 2017-09-10 14:03 | Inpatient (IN) | payer OTHER ==
[~2017-09-10] VITALS: Ht 170.2 cm; Wt 116.8 kg
[2017-09-10] VITALS (8 sets, daily range): BP systolic 148–158; BP diastolic 67–98; PULSE 91–108; RESP 18–22; TEMP 96–97.7; O2SAT 92–98
[~2017-09-10 14:03] MED LIST changes: +LISI-515 PO; +METO50TA PO
[2017-09-10] MEDS ORDERED: HYDR-3583 PO (14:21)
[2017-09-10] MEDS ORDERED: LISI-515 PO (14:21)
[2017-09-10] MEDS ORDERED: METO-309 PO (14:21)
[2017-09-10] MEDS ORDERED: OXYB5TAB8 PO (14:21)
[2017-09-10] MEDS ORDERED: TRAZ50TA12 PO (14:21)
[2017-09-10] MEDS ORDERED: LORA1TAB12 PO (14:21)
[2017-09-10] MEDS ORDERED: PROM12.54 PO (14:21)
[2017-09-10] MEDS ORDERED: CAPS1ADH (14:21)
[2017-09-10] MEDS ORDERED: PREV30CA36 PO (14:21)
[2017-09-10] MEDS ORDERED: CYCL10TA PO (14:21)
[2017-09-10] MEDS ORDERED: AMBI10TA PO (14:21)
[2017-09-10] MEDS ORDERED: ZANT150T2 PO (14:21)
[2017-09-10] MEDS ORDERED: REGL10TA5 PO (14:21)
[2017-09-10] MEDS ORDERED: COLA100C5 PO (14:21)
[2017-09-10] MEDS ORDERED: MILL5PAK (14:29)
[2017-09-10] MEDS ORDERED: RESP: LIDOCAINE HCL 4% PF 5 ML NEB NEB ONE (14:30)
[2017-09-10] MEDS ORDERED: methylPREDNISolone SOD SUCC 125 MG/2 ML VIAL IV PUSH ONE (14:30)
[2017-09-10 14:39] LABS: AUTOMATED NEUTROPHIL # 13.6 TH/MM3 (1.8-7.7); BASOPHIL # 0.1 TH/MM3 (0-0.2); BASOPHIL % 0.5 % (0.0-2.0); EOSINOPHIL # 0.8 TH/MM3 (0-0.4); EOSINOPHIL % 4.2 % (0.0-4.0); HEMOGLOBIN 13.6 GM/DL (11.6-15.3); LYMPH % 14.3 % (9.0-44.0); LYMPHOCYTE # 2.6 TH/MM3 (1.0-4.8); MEAN CELL VOLUME 83.7 FL (80.0-100.0); MEAN CORPUSCULAR HEMOGLOBIN 26.4 PG (27.0-34.0); MEAN CORPUSCULAR HGB CONC 31.5 % (32.0-36.0); MEAN PLATELET VOLUME 8.7 FL (7.0-11.0); MONO % 6.2 % (0.0-8.0); MONOCYTE # 1.1 TH/MM3 (0-0.9); NEUT % 74.8 % (16.0-70.0); PLATELET COUNT 331 TH/MM3 (150-450); RED BLOOD COUNT 5.14 MIL/MM3 (4.00-5.30); RED CELL DISTRIBUTION WIDTH 15.4 % (11.6-17.2); WHITE BLOOD COUNT 18.2 TH/MM3 (4.0-11.0)
[2017-09-10] MEDS: RESP: ALBUTEROL 2.5 MG/IPRATROPIUM 0.5 MG NEB (SCH) INH (14:48)
--- NOTE | 2017-09-10 14:55 | RADRPT ---
EXAM DATE: 09/10/2017 2:46 PM EDT AGE/SEX: 62 years / Female INDICATIONS: Short of breath. CLINICAL DATA: This is the patient's initial encounter. Patient reports that signs and symptoms have been present for 1 day and indicates a pain score of 0/10. MEDICAL/SURGICAL HISTORY: . Carcinoma, breast. . Double mastectomy, breast implants. [place] [facility] [place]. . FINDINGS: Minimal basilar atelectasis. No effusion. No pneumothorax. Heart size is within normal limits. CONCLUSION: Minimal basilar atelectasis. Electronically signed by: Victoriano Biswas MD 09/10/2017 2:54 PM EDT
--- NOTE | 2017-09-10 15:07 | PD ---
HPI Chief Complaint: Respiratory Distress Time Seen by Provider: 14:08 Travel History International Travel<30 days: No Contact w/Intl Traveler<30days: No Traveled to known affect area: No History of Present Illness HPI The patient is a 62-year-old female who presents to the emergency department for shortness of breath. The patient notes a recent upper respiratory infection with congestion and a mostly dry nonproductive cough. However, the patient does note increasing shortness of breath that started last night. She also notes some audible wheezing, she denies any previous history of bronchitis, pneumonia, COPD, or congestive heart failure. The patient denies any history of pulmonary embolism or DVT. The patient denies any recent prolonged travel, hospitalizations, or surgeries. The patient does have a history of chronic exertional dyspnea with significant exertion, however, states that is chronic. She does note the shortness of breath now is acute and is present with minimal activity. The patient denies any known history of coronary artery disease. She does have a history of diabetes and is scheduled to see a ceramic research engineer next week. Symptoms are moderate. The patient denies any accompanying fever, chills, or sweats. PFSH Past Medical History Arthritis: Yes Autoimmune Disease: No Anxiety: Yes Depression: Yes Cancer: Yes (breast) Cardiovascular Problems: Yes Chemotherapy: No Diabetes: Yes Patient Takes Glucophage: No Diminished Hearing: No Endocrine: Yes (diet controlled) Gastrointestinal Disorders: Yes (GERD) GERD: Yes Genitourinary: No Headaches: Yes Hepatitis: No Hiatal Hernia: No Hypertension: Yes Immune Disorder: No Musculoskeletal: Yes Neurologic: No Psychiatric: Yes Reproductive: No Respiratory: No Radiation Therapy: No Thyroid Disease: No Tetanus Vaccination: < 5 Years Past Surgical History AICD: No Body Medical Devices: PICC LINE RIGHT ARM Gynecologic Surgery: Yes (HYSTERECTOMY) Hysterectomy: Yes Joint Replacement: Yes (RIGHT KNEE) Oral Surgery: Yes (TONSILLECTOMY) Pacemaker: No Thoracic Surgery: Yes (LEFT MASTECTOMY) Tonsillectomy: Yes Other Surgery: Yes (ABRAHAN MASTECTOMY, revision of implants) Social History Alcohol Use: No Tobacco Use: No Substance Use: No Allergies-Medications (Allergen,Severity, Reaction): Coded Allergies: codeine (Unverified Allergy, Unknown, 09/10/17) NAUSEA Reported Meds & Prescriptions Reported Meds & Active Scripts Active Reported Metoprolol Tartrate 25 Mg Tab 25 Mg PO HS Flexeril (Cyclobenzaprine HCl) 10 Mg Tab 10 Mg PO BID Zantac (Ranitidine HCl) 150 Mg Tab 75 Mg PO BID Salonpas Gel-Patch Hot (Capsaicin/Menthol) 0.025 %-1.25 % Adh..patch Promethazine (Promethazine HCl) 12.5 Mg Tab 25 Mg PO Q6H PRN Colace (Docusate Sodium) 100 Mg Capsule 100 Mg PO HS Hydrocodone-Acetaminophen 10-325 mg Tab 1 Tab PO Q6H PRN Lisinopril 20 Mg Tab 20 Mg PO BID Reglan (Metoclopramide HCl) 10 Mg Tab 10 Mg PO QID Lorazepam 1 Mg Tab 1 Mg PO Q6H PRN Prevacid (Lansoprazole) 30 Mg Capdr 30 Mg PO DAILY Ditropan (Oxybutynin Chloride) 5 Mg Tab 5 Mg PO DAILY Lopressor (Metoprolol Tartrate) 50 Mg Tab 50 Mg PO DAILY Trazodone (Trazodone HCl) 50 Mg Tab 50 Mg PO HS Ambien (Zolpidem Tartrate) 10 Mg Tab 10 Mg PO HS PRN Review of Systems Except as stated in HPI: all other systems reviewed are Neg General / Constitutional: No: Fever, Chills HENT: No: Lightheadedness Cardiovascular: Positive: Dyspnea on exertion, No: Chest Pain or Discomfort Respiratory: Positive: Cough, Shortness of Breath, Wheezing Gastrointestinal: No: Nausea, Vomiting Musculoskeletal: No: Edema Neurologic: No: Dizziness Physical Exam Narrative GENERAL: Awake, alert, pleasant 62-year-old female who appears her stated age and is in mild respiratory distress. SKIN: Focused skin assessment warm/dry. HEAD: Atraumatic. Normocephalic. EYES: No injection or drainage. ENT: No nasal bleeding or discharge. Mucous membranes pink and moist. NECK: Trachea midline. No JVD. CARDIOVASCULAR: Regular, tachycardic with a heart rate of 105. RESPIRATORY: Tachypnea with a respiratory rate of 24. Prolonged expiratory phase with wheezes noted. GASTROINTESTINAL: Abdomen soft, non-tender, nondistended. MUSCULOSKELETAL: No obvious deformities. No clubbing. No cyanosis. No edema. NEUROLOGICAL: Awake and alert. No obvious cranial nerve deficits. Motor grossly within normal limits. Normal speech. PSYCHIATRIC: Appropriate mood and affect; insight and judgment normal. Data Data Last Documented VS Vital Signs Date Time Temp Pulse Resp B/P (MAP) Pulse Ox O2 Delivery O2 Flow Rate FiO2 09/10/17 15:20 22 95 Nasal Cannula 2.00 09/10/17 14:22 97.7 108 Orders Orders Complete Blood Count With Diff (09/10/17 14:25) Comprehensive Metabolic Panel (09/10/17 14:25) B-Type Natriuretic Peptide (09/10/17 14:25) D-Dimer (09/10/17 14:25) Act Partial Throm Time (Ptt) (09/10/17 14:25) Prothrombin Time / Inr (Pt) (09/10/17 14:25) Magnesium (Mg) (09/10/17 14:25) Ckmb (Isoenzyme) Profile (09/10/17 14:25) Troponin I (09/10/17 14:25) Iv Access Insert/Monitor (09/10/17 14:25) Electrocardiogram (09/10/17 14:25) Ecg Monitoring (09/10/17 14:25) Oximetry (09/10/17 14:25) Oxygen Administration (09/10/17 14:25) Chest, Single Ap (09/10/17 14:25) Sodium Chloride 0.9% Flush (Ns Flush) (09/10/17 14:30) Methylprednisolone So Succ Inj (Solumedr (09/10/17 14:30) Albuterol-Ipratropium Neb (Duoneb Neb) (09/10/17 14:30) Lactic Acid (09/10/17 14:25) Lidocaine Pf 4% Neb (Lidocaine Pf 4% Neb (09/10/17 14:30) CKMB (09/10/17 14:30) CKMB% (09/10/17 14:30) Metoprolol Tartrate (Lopressor) (09/10/17 15:30) Pantoprazole (Protonix) (09/10/17 15:30) Ct Pulmonary Angiogram (09/10/17 ) Admit To Inpatient (09/10/17 ) Activity Oob With Assistance (09/10/17 16:00) Vital Signs (Adult) MADELINE.Q4H (09/10/17 16:00) Sergeant Of Officers / Telemetry MADELINE.Q8H (09/10/17 16:00) Scd Bilateral/Knee High MADELINE.QSHIFT (09/10/17 16:00) Inpatient Certification (09/10/17 ) Acetaminophen (Tylenol) (09/10/17 16:00) Ondansetron Odt (Zofran Odt) (09/10/17 16:00) Insulin Aspart Supplemtl Scale (Novolog (09/10/17 17:00) Methylprednisolone So Succ Inj (Solumedr (09/10/17 18:00) Albuterol-Ipratropium Neb (Duoneb Neb) (09/10/17 20:00) Albuterol-Ipratropium Neb (Duoneb Neb) (09/10/17 16:00) Acetamin-Hydrocod 325-10 Mg ([place] 10-32 (09/10/17 16:00) Albuterol-Ipratropium Neb (Duoneb Neb) (09/10/17 20:00) Cyclobenzaprine (Flexeril) (09/10/17 21:00) Docusate Sodium (Colace) (09/10/17 21:00) Lorazepam (Ativan) (09/10/17 16:15) Metoclopramide (Reglan) (09/10/17 18:00) Metoprolol Tartrate (Lopressor) (09/10/17 21:00) Metoprolol Tartrate (Lopressor) (09/11/17 09:00) Oxybutynin (Ditropan) (09/11/17 09:00) Trazodone (Desyrel) (09/10/17 21:00) (Nf) Lansoprazole (Prevacid) (09/11/17 09:00) (Nf) Ranitidine (Zantac) (09/10/17 21:00) Diet Diabetic (09/10/17 Dinner) Albuterol-Ipratropium Neb (Duoneb Neb) (09/10/17 20:00) Albuterol-Ipratropium Neb (Duoneb Neb) (09/10/17 16:30) Famotidine (Pepcid) (09/10/17 21:00) Sodium Chlorid 0.9% 500 Ml Inj (Ns 500 M (09/10/17 16:45) Levofloxacin 500 Mg Premix Inj (Levaquin (09/10/17 17:00) Pantoprazole (Protonix) (09/11/17 09:00) Complete Blood Count With Diff (09/11/17 06:00) Basic Metabolic Panel (Bmp) (09/11/17 06:00) Magnesium (Mg) (09/11/17 06:00) Clonidine (Catapres) (09/10/17 16:45) Admit Order (Ed Use Only) (09/10/17 16:50) Labs Laboratory Tests Test 09/10/17 14:30 White Blood Count 18.2 TH/MM3 Red Blood Count 5.14 MIL/MM3 Hemoglobin 13.6 GM/DL Hematocrit 43.0 % Mean Corpuscular Volume 83.7 FL Mean Corpuscular Hemoglobin 26.4 PG Mean Corpuscular Hemoglobin Concent 31.5 % Red Cell Distribution Width 15.4 % Platelet Count 331 TH/MM3 Mean Platelet Volume 8.7 FL Neutrophils (%) (Auto) 74.8 % Lymphocytes (%) (Auto) 14.3 % Monocytes (%) (Auto) 6.2 % Eosinophils (%) (Auto) 4.2 % Basophils (%) (Auto) 0.5 % Neutrophils # (Auto) 13.6 TH/MM3 Lymphocytes # (Auto) 2.6 TH/MM3 Monocytes # (Auto) 1.1 TH/MM3 Eosinophils # (Auto) 0.8 TH/MM3 Basophils # (Auto) 0.1 TH/MM3 CBC Comment DIFF FINAL Differential Comment Prothrombin Time 10.2 SEC Prothromb Time International Ratio 1.0 RATIO Activated Partial Thromboplast Time 26.1 SEC D-Dimer Quantitative (PE/DVT) 1.01 MG/L FEU Blood Urea Nitrogen 10 MG/DL Creatinine 1.14 MG/DL Random Glucose 327 MG/DL Total Protein 7.8 GM/DL Albumin 3.7 GM/DL Calcium Level 8.8 MG/DL Magnesium Level 1.7 MG/DL Alkaline Phosphatase 124 U/L Aspartate Amino Transf (AST/SGOT) 17 U/L Alanine Aminotransferase (ALT/SGPT) 27 U/L Total Bilirubin 0.3 MG/DL Sodium Level 134 MEQ/L Potassium Level 4.5 MEQ/L Chloride Level 99 MEQ/L Carbon Dioxide Level 24.4 MEQ/L Anion Gap 11 MEQ/L Estimat Glomerular Filtration Rate 48 ML/MIN Lactic Acid Level 2.7 mmol/L Total Creatine Kinase 104 U/L Creatine Kinase MB 1.8 NG/ML Troponin I LESS THAN 0.02 NG/ML B-Type Natriuretic Peptide 13 PG/ML [facility] Medical Decision Making Medical Screen Exam Complete: Yes Emergency Medical Condition: Yes Medical Record Reviewed: Yes Interpretation(s) EKG reveals sinus tachycardia with a heart rate of 106. Q-wave noted in lead III and aVF. Last Impressions Chest X-Ray 09/10/17 1425 Signed Impressions: CONCLUSION: Minimal basilar atelectasis. CT Angiography 09/10/17 0000 Signed Impressions: CONCLUSION: 1. Negative for pulmonary embolus. Calcified granuloma in left lung. There is mild peribronchial thickening noted bilaterally. Laboratory Tests Test 09/10/17 14:30 White Blood Count 18.2 TH/MM3 Red Blood Count 5.14 MIL/MM3 Hemoglobin 13.6 GM/DL Hematocrit 43.0 % Mean Corpuscular Volume 83.7 FL Mean Corpuscular Hemoglobin 26.4 PG Mean Corpuscular Hemoglobin Concent 31.5 % Red Cell Distribution Width 15.4 % Platelet Count 331 TH/MM3 Mean Platelet Volume 8.7 FL Neutrophils (%) (Auto) 74.8 % Lymphocytes (%) (Auto) 14.3 % Monocytes (%) (Auto) 6.2 % Eosinophils (%) (Auto) 4.2 % Basophils (%) (Auto) 0.5 % Neutrophils # (Auto) 13.6 TH/MM3 Lymphocytes # (Auto) 2.6 TH/MM3 Monocytes # (Auto) 1.1 TH/MM3 Eosinophils # (Auto) 0.8 TH/MM3 Basophils # (Auto) 0.1 TH/MM3 CBC Comment DIFF FINAL Differential Comment Prothrombin Time 10.2 SEC Prothromb Time International Ratio 1.0 RATIO Activated Partial Thromboplast Time 26.1 SEC D-Dimer Quantitative (PE/DVT) 1.01 MG/L FEU Blood Urea Nitrogen 10 MG/DL Creatinine 1.14 MG/DL Random Glucose 327 MG/DL Total Protein 7.8 GM/DL Albumin 3.7 GM/DL Calcium Level 8.8 MG/DL Magnesium Level 1.7 MG/DL Alkaline Phosphatase 124 U/L Aspartate Amino Transf (AST/SGOT) 17 U/L Alanine Aminotransferase (ALT/SGPT) 27 U/L Total Bilirubin 0.3 MG/DL Sodium Level 134 MEQ/L Potassium Level 4.5 MEQ/L Chloride Level 99 MEQ/L Carbon Dioxide Level 24.4 MEQ/L Anion Gap 11 MEQ/L Estimat Glomerular Filtration Rate 48 ML/MIN Lactic Acid Level 2.7 mmol/L Total Creatine Kinase 104 U/L Creatine Kinase MB 1.8 NG/ML Troponin I LESS THAN 0.02 NG/ML B-Type Natriuretic Peptide 13 PG/ML Differential Diagnosis Differential diagnosis includes bronchitis, pneumonia, pulmonary embolism, acute coronary syndrome, pleural effusion, reactive airway disease, congestive heart failure, pulmonary edema. Narrative Course IV was established, labs are drawn and sent, and the patient was placed on cardiac telemetry monitoring and continuous pulse oximetry monitoring. EKG was ordered and interpreted. Chest x-ray was obtained. The patient was administered Solu-Medrol 125 mg intravenously and duo nebs 2 with respiratory lidocaine. Patient was tachycardic and slightly hypoxic, therefore, d-dimer was ordered. Chest x-ray reveals atelectasis, otherwise unremarkable. BNP is 13, no evidence of congestive heart failure. D-dimer is positive, greater than 1, therefore, CT pulmonary angiogram was ordered. The patient appears to have reactive airway disease, may be viral, however, was tachycardic with mild hypoxia. The patient will require admission for steroids and nebulizers. Therefore, the on-call [facility] physician was paged for admission. Procedures Procedure Narrative I placed a 20-gauge ultrasound-guided IV, 1.88 inch, in the right upper extremity under ultrasound guidance using a linear probe. There was good blood return and the IV fluid easily. The patient tolerated the procedure without difficulty and there was no obvious complications. Sepsis Criteria SIRS Criteria (2 or more): Heart rate over 90, RR > 20 or PaCO2 < 32, WBC > 61215, < 4000 or > 10% bands Criteria Outcome: Meets SIRS criteria Physician Communication Physician Communication The on-call [facility] physician was paged for admission. I discussed the patient with Dr. Saba who agrees with admission. Diagnosis Primary Impression: Dyspnea Qualified Codes: R06.02 - Shortness of breath Additional Impression: Reactive airway disease Qualified Codes: J45.901 - Unspecified asthma with (acute) exacerbation Admitting Information Admitting Physician Requests: Observation Condition: Stable Kenny Vernon MD Sep 10, 2017 15:07
[2017-09-10 15:08] LABS: ALBUMIN 3.7 GM/DL (3.4-5.0); ALT (GPT) 27 U/L (10-53); AST (GOT) 17 U/L (15-37); BICARBONATE 24.4 MEQ/L (21.0-32.0); BLOOD UREA NITROGEN 10 MG/DL (7-18); CALCIUM 8.8 MG/DL (8.5-10.1); CHLORIDE 99 MEQ/L (98-107); CREATININE 1.14 MG/DL (0.50-1.00); GLOMERULAR FILTRATION RATE 48 ML/MIN (>89); GLUCOSE,RANDOM 327 MG/DL (74-106); MAGNESIUM 1.7 MG/DL (1.5-2.5); SODIUM (NA) 134 MEQ/L (136-145)
[2017-09-10 15:10] LABS: PROTHROMBIN TIME - PATIENT 10.2 SEC (9.8-11.6)
[2017-09-10 15:12] LABS: ALKALINE PHOSPHATASE 124 U/L (45-117); TOTAL BILIRUBIN ADULT 0.3 MG/DL (0.2-1.0); TOTAL PROTEIN 7.8 GM/DL (6.4-8.2); TROPONIN I LESS THAN 0.02 NG/ML (0.02-0.05)
[2017-09-10 15:18] LABS: D-DIMER 1.01 MG/L FEU (0.00-0.50)
[2017-09-10] MEDS ORDERED: METOPROLOL TARTRATE 25 MG TAB PO ONE (15:30)
[2017-09-10] MEDS ORDERED: PANTOPRAZOLE SOD 40 MG DELAYED RELEASE TAB PO ONE (15:30)
[2017-09-10] MEDS ORDERED: IOHEXOL 350 MG/ML 10 ML VIAL (for RAD DIAG) IVCONTRAST ONE (15:47)
[2017-09-10] MEDS ORDERED: METO25TA3 PO (15:57)
[2017-09-10] MEDS ORDERED: RESP: ALBUTEROL 2.5 MG/IPRATROPIUM 0.5 MG NEB (PRN) NEB (16:00)
[2017-09-10] MEDS ORDERED: ACETAMINOPHEN 325 MG TAB PO PRN (16:00)
[2017-09-10] MEDS ORDERED: ONDANSETRON ODT 4 MG TAB PO PRN (16:00)
--- NOTE | 2017-09-10 16:00 | HHI.HP ---
HPI Service [facility] Hospitalists Primary Care Physician Isidro Ji MD Admission Diagnosis Bronchitis/Reactive airway disease Travel History International Travel<30 Days: No Contact w/Intl Traveler <30 Da: No Traveled to Known Affected Are: No History of Present Illness Mrs. Ji is a pleasant 62 y/o WF with diabetes unable to tolerate OHA, HTN, hyperlipidemia, and hx of breast cancer. She reported to the ED at [facility] on with complaints of worsening SOB, wheezing, cough and congestion. She reports that her and daughter have had similar symptoms but not as severe. She notes that her symptoms began on 09/07/17, with congestion , sore throat, and nonproductive cough. Pt noted some post-tussive vomiting on Tuesday evening but this resolved. She denies any fevers but reports some subjective chills. Pt was started on a Z-pack 3 days ago without improvement in her symptoms. She has had increasing wheezing and dyspnea with minimal exertion for the last day or so and seemed to be worsened and this prompted her evaluation in the ED. In the ED pt was given Solu-Medrol 125mg x one dose and Duonebs x 2 treatments with some improvement. She is not currently wheezing audibly with talking like she was prior to coming to the ED. Pts labs in the ED noted elevated WBC count of 18.2, Cr 1.14, BUN 10, GFR 48. Her BNP is 13. D- Dime was slightly elevated at 1.01. CXR in the ED noted minimal bibasilar atelectasis. Pulmonary CTA is ordered by the ED. Review of Systems Constitutional: COMPLAINS OF: Chills, DENIES: Fever Ears, nose, mouth, throat: COMPLAINS OF: Throat pain Respiratory: COMPLAINS OF: Cough, Shortness of breath, DENIES: Sputum production Cardiovascular: COMPLAINS OF: Dyspnea on Exertion, DENIES: Chest pain, Palpitations, Lower Extremity Edema Gastrointestinal: COMPLAINS OF: Vomiting, DENIES: Abdominal pain, Nausea Genitourinary: DENIES: Urgency, Hematuria Musculoskeletal: DENIES: Neck pain Integumentary: DENIES: Rash Neurologic: DENIES: Headache Psychiatric: DENIES: Confusion Past Family Social History Past Medical History Diabetes mellitus, HgbA1C 8.9% Hypertension Left breast cancer, status post bilateral mastectomy with reconstructive surgery GERD Migraine headaches Anxiety Osteoarthritis in bilateral knees Past Surgical History Bilateral mastectomy secondary to left breast cancer Bilateral breast reconstructive surgery Tonsillectomy Hysterectomy sparing the ovaries History of PICC line at right arm Total knee arthroplasty, right VIVIANE in 2017 Reported Medications -Flexeril 10 Mg PO BID -Salonpas Gel-Patch Hot (Capsaicin/Menthol) 0.025 %-1.25 % Adh..patch -Promethazine (Promethazine HCl) 12.5 Mg Tab 25 Mg PO Q6H PRN -Colace (Docusate Sodium) 100 Mg Capsule 100 Mg PO HS -Hydrocodone-Acetaminophen 10-325 mg Tab 1 Tab PO Q6H PRN -Reglan 10 Mg PO QID -Lorazepam 1 Mg Tab 1 Mg PO Q6H PRN -Prevacid 30 Mg PO DAILY -Ditropan 5 Mg PO DAILY -Lopressor 50 Mg PO IN AM and 25Mg in PM -Trazodone 100 Mg PO HS -Ambien 10 Mg PO HS PRN -Lisinopril 20 Mg PO BID -Zantac 75 Mg PO BID PRN Allergies: Coded Allergies: codeine (Unverified Allergy, Unknown, 09/10/17) NAUSEA Family History Noncontributory Social History Denies any alcohol, tobacco or illicit drug use Physical Exam Vital Signs Vital Signs Date Time Temp Pulse Resp B/P (MAP) Pulse Ox O2 Delivery O2 Flow Rate FiO2 09/10/17 15:20 22 95 Nasal Cannula 2.00 09/10/17 14:52 98 Nasal Cannula 2.00 09/10/17 14:25 94 Nasal Cannula 2.00 09/10/17 14:22 94 09/10/17 14:22 97.7 108 22 149/76 (100) 92 Room Air Physical Exam GENERAL: This is a well-nourished, well-developed patient, in no apparent distress. SKIN: No rashes, ecchymoses or lesions. Cool and dry. HEENT: Atraumatic. Normocephalic. No temporal or scalp tenderness. No scleral icterus. Airway patent. NECK: Trachea midline, supple, nontender. CARDIO: Regular, tachy RESP: Diffuse expiratory wheezing throughout. ABD: +BS, soft, non-tender, nondistended. EXT: Extremities without clubbing, cyanosis, or edema. NEURO: Awake and alert. Motor and sensory grossly within normal limits. Normal speech. Laboratory Laboratory Tests Test 09/10/17 14:30 White Blood Count 18.2 Red Blood Count 5.14 Hemoglobin 13.6 Hematocrit 43.0 Mean Corpuscular Volume 83.7 Mean Corpuscular Hemoglobin 26.4 Mean Corpuscular Hemoglobin Concent 31.5 Red Cell Distribution Width 15.4 Platelet Count 331 Mean Platelet Volume 8.7 Neutrophils (%) (Auto) 74.8 Lymphocytes (%) (Auto) 14.3 Monocytes (%) (Auto) 6.2 Eosinophils (%) (Auto) 4.2 Basophils (%) (Auto) 0.5 Neutrophils # (Auto) 13.6 Lymphocytes # (Auto) 2.6 Monocytes # (Auto) 1.1 Eosinophils # (Auto) 0.8 Basophils # (Auto) 0.1 CBC Comment DIFF FINAL Differential Comment Prothrombin Time 10.2 Prothromb Time International Ratio 1.0 Activated Partial Thromboplast Time 26.1 D-Dimer Quantitative (PE/DVT) 1.01 Blood Urea Nitrogen 10 Creatinine 1.14 Random Glucose 327 Total Protein 7.8 Albumin 3.7 Calcium Level 8.8 Magnesium Level 1.7 Alkaline Phosphatase 124 Aspartate Amino Transf (AST/SGOT) 17 Alanine Aminotransferase (ALT/SGPT) 27 Total Bilirubin 0.3 Sodium Level 134 Potassium Level 4.5 Chloride Level 99 Carbon Dioxide Level 24.4 Anion Gap 11 Estimat Glomerular Filtration Rate 48 Lactic Acid Level 2.7 Total Creatine Kinase 104 Creatine Kinase MB 1.8 Troponin I LESS THAN 0.02 B-Type Natriuretic Peptide 13 Result Diagram: 09/10/17 1430 09/10/17 1430 Imaging Last Impressions Chest X-Ray 09/10/17 1425 Signed Impressions: CONCLUSION: Minimal basilar atelectasis. Caprini VTE Risk Assessment Caprini VTE Risk Assessment: Mod/High Risk (score >= 2) Caprini Risk Assessment Model Point Value = 1 Point Value = 2 Point Value = 3 Point Value = 5 Age 41-60 Minor surgery BMI > 25 kg/m2 Swollen legs Varicose veins or History of unexplained or recurrent spontaneous Oral contraceptives or hormone replacement Sepsis (< 1 month) Serious lung disease, including pneumonia (< 1 month) Abnormal pulmonary function Acute myocardial infarction Congestive heart failure (< 1 month) History of inflammatory bowel disease Medical patient at bed rest Age 61-74 Arthroscopic surgery Major open surgery (> 45 min) Laparoscopic surgery (> 45 min) Malignancy Confined to bed (> 72 hours) Immobilizing plaster cast Central venous access Age >= 75 History of VTE Family history of VTE Factor V Leiden Prothrombin [id number] Lupus anticoagulant Anticardiolipin antibodies Elevated serum homocysteine Heparin-induced thrombocytopenia Other congenital or acquired thrombophilia Stroke (< 1 month) Elective arthroplasty Hip, pelvis, or leg fracture Acute spinal cord injury (< 1 month) Prophylaxis Regimen Total Risk Factor Score Risk Level Prophylaxis Regimen 0-1 Low Early ambulation 2 Moderate Order ONE of the following: *Sequential Compression Device (SCD) *Heparin 5000 units SQ BID 3-4 Higher Order ONE of the following medications: *Heparin 5000 units SQ TID *Enoxaparin/Lovenox 40 mg SQ daily (WT < 150 kg, CrCl > 30 mL/min) *Enoxaparin/Lovenox 30 mg SQ daily (WT < 150 kg, CrCl > 10-29 mL/min) *Enoxaparin/Lovenox 30 mg SQ BID (WT < 150 kg, CrCl > 30 mL/min) AND/OR *Sequential Compression Device (SCD) 5 or more Highest Order ONE of the following medications: *Heparin 5000 units SQ TID (Preferred with Epidurals) *Enoxaparin/Lovenox 40 mg SQ daily (WT < 150 kg, CrCl > 30 mL/min) *Enoxaparin/Lovenox 30 mg SQ daily (WT < 150 kg, CrCl > 10-29 mL/min) *Enoxaparin/Lovenox 30 mg SQ BID (WT < 150 kg, CrCl > 30 mL/min) AND *Sequential Compression Device (SCD) Assessment and Plan Problem List: (1) Acute bronchitis ICD Codes: J20.9 - Acute bronchitis, unspecified Status: Acute Plan: Acute bronchitis Reactive airway disease - Pt is a 62 y/o WF with diabetes, unable to tolerate OHA, HTN, hyperlipidemia, and hx of breast cancer. - She reported to the ED at [facility] on 09/10/17 with complaints of worsening SOB, wheezing, cough and congestion x 4 days. Pt has had ill contacts with her and daughter having had similar symptoms but not as severe. - Symptoms began on 09/07/17, with congestion, sore throat, and nonproductive cough. Pt noted some post-ssive vomiting on Tuesday evening but this resolved. No fevers but reports some subjective chills. Pt was started on a Z-pack 3 days ago without improvement in her symptoms. She has had increasing wheezing and dyspnea with minimal exertion for the last day or so and seemed to be worsened and this prompted her evaluation in the ED. - In the ED pt was given Solu-Medrol 125mg x one dose and Duonebs x 2 treatments with some improvement. - Labs in the ED noted elevated WBC count of 18.2, Cr 1.14, BUN 10, GFR 48. Her BNP is 13. - D-Dimer was slightly elevated at 1.01. - CXR in the ED noted minimal bibasilar atelectasis. - Pulmonary CTA is ordered by the ED. - Cont. Solu-Medrol 60mg Q6H - Cont. Duonebs Q4H WA and Q2H PRN - Start Levaquin - Telemetry - Supportive care - DVT prophylaxis with SCDs GARRY - Labs are slightly higher than baseline, may be related to some dehydration - Give 500mL @ 50ml/hr x one bag - Encourage oral intake - Recheck labs in AM Diabetes mellitus, poorly controlled, unable to tolerate OHA - NovoLog SSI - Accu check - Watch for steroid hyperglycemia HTN - Cont. Metoprolol 50mg in AM and 25mg in PM - Hold Lisinopril for now as Cr is slightly elevated and pt to have a CTA - Monitor (2) Reactive airway disease ICD Codes: J45.909 - Unspecified asthma, uncomplicated Status: Acute (3) GARRY (acute kidney injury) ICD Codes: N17.9 - Acute kidney failure, unspecified (4) DM2 (diabetes mellitus, type 2) ICD Codes: E11.9 - Type 2 diabetes mellitus without complications Status: Chronic (5) HTN (hypertension) ICD Codes: I10 - Essential (primary) hypertension Status: Chronic (6) GERD (gastroesophageal reflux disease) ICD Codes: K21.9 - Gastro-esophageal reflux disease without esophagitis Status: Chronic (7) Anxiety ICD Codes: F41.9 - Anxiety disorder, unspecified Status: Chronic Physician Certification 2 Midnight Certification Type: Admission for Inpatient Services Order for Inpatient Services The services are ordered in accordance with Medicare regulations or non- Medicare payer requirements, as applicable. In the case of services not specified as inpatient-only, they are appropriately provided as inpatient services in accordance with the 2-midnight benchmark. Estimated LOS (days): 3 3 days is the estimated time the patient will need to remain in the hospital, assuming treatment plan goals are met and no additional complications. Post-Hospital Plan: Home Problem Qualifiers (1) Reactive airway disease: Qualified Codes: J45.901 - Unspecified asthma with (acute) exacerbation Belen Tsai Sep 10, 2017 16:00
[2017-09-10] MEDS ORDERED: RESP: ALBUTEROL 2.5 MG/IPRATROPIUM 0.5 MG NEB (SCH) NEB ONE (16:30)
[2017-09-10] MEDS ORDERED: SODIUM CHLORID 0.9% 500 ML INJ 500 ML IV SCH (16:45)
[2017-09-10] MEDS ORDERED: cloNIDine HCL 0.1 MG TAB PO PRN (16:45)
[2017-09-10] MEDS: LEVOFLOXACIN 500 MG PREMIX INJ 100 ML IV SCH (17:34)
--- NOTE | 2017-09-10 18:02 | RADRPT ---
EXAM DATE: 09/10/2017 5:55 PM EDT AGE/SEX: 62 years / Female INDICATIONS: Tachycardia and hypoxia; rule out pulmonary embolus. CLINICAL DATA: This is the patient's initial encounter. Patient reports that signs and symptoms have been present for 1 day and indicates a pain score of 0/10. MEDICAL/SURGICAL HISTORY: Carcinoma, breast. Gastroesophageal reflux disease. Diabetes. Mastectom y, bilateral. Hysterectomy. RADIATION DOSE: 10.49 CTDI (mGy) COMPARISON: No prior exams available for comparison. TECHNIQUE: Volumetric scanning was performed using a multi-row detector CT scanner during bolus infu patricia of 70 ml Omnipaque 350 (iohexol) nonionic water-soluble contrast as a single exam dose. The vasu a was post processed with a variety of visualization algorithms including full volume maximum intensi ty projection and sliding thin slab reformation. Using automated exposure control and adjustment of the mA and/or kV according to patient size, radiation dose was kept as low as reasonably achievable t o obtain optimal diagnostic quality images. FINDINGS: No filling defects identified in the pulmonary arteries to suggest pulmonary embolic disease. No janette r or mediastinal adenopathy. No pleural or pericardial effusion. Calcified granuloma left upper lobe. Previous breast augmentation. CONCLUSION: 1. Negative for pulmonary embolus. Calcified granuloma in left lung. There is mild peribronchial thi ckening noted bilaterally. Electronically signed by: Victoriano Biswas MD 09/10/2017 6:01 PM EDT
[2017-09-10] MEDS: INSULIN ASPART SUPPLEMENTAL SCALE SQ SCH ×2 (18:51→21:57)
[2017-09-10] MEDS ORDERED: RESP: ALBUTEROL 2.5 MG/IPRATROPIUM 0.5 MG NEB (SCH) NEB ×2 (20:00)
[2017-09-10] MEDS: RESP: ALBUTEROL 2.5 MG/IPRATROPIUM 0.5 MG NEB (SCH) NEB (20:05)
[2017-09-10] MEDS: traZODone HCL 50 MG TAB PO SCH (20:45)
[2017-09-10] MEDS: FAMOTIDINE 20 MG TAB PO SCH (20:45)
[2017-09-10] MEDS: ACETAMINOPHEN/HYDROcodone 325 MG/10 MG TAB PO PRN (20:46)
[2017-09-10] MEDS: METOCLOPRAMIDE HCL 10 MG TAB PO SCH (20:46)
[2017-09-10] MEDS: methylPREDNISolone SOD SUCC 125 MG/2 ML VIAL IV PUSH SCH (20:46)
[2017-09-10] MEDS: DOCUSATE SODIUM 100 MG CAP PO SCH (20:47)
[2017-09-10] MEDS: METOPROLOL TARTRATE 25 MG TAB PO SCH (20:47)
[2017-09-10] MEDS: CYCLOBENZAPRINE HCL 10 MG TAB PO SCH (20:47)
[2017-09-10] MEDS ORDERED: ZOLPIDEM TARTRATE 10 MG TAB PO ONE (21:00)
[2017-09-10] MEDS ORDERED: NON-FORMULARY DRUG (Ranitidine (Zantac) 75 MG) PO SCH (21:00)
[2017-09-11] VITALS (11 sets, daily range): BP systolic 121–163; BP diastolic 65–85; PULSE 91–116; RESP 17–20; TEMP 96–98; O2SAT 92–96
[2017-09-11] MEDS: methylPREDNISolone SOD SUCC 125 MG/2 ML VIAL IV PUSH SCH ×4 (00:59→17:29)
[2017-09-11] MEDS: ACETAMINOPHEN/HYDROcodone 325 MG/10 MG TAB PO PRN ×4 (02:40→20:37)
[2017-09-11] MEDS: SODIUM CHLORIDE 0.9% FLUSH 10 ML FLUSH IVF PRN (06:14)
[2017-09-11] MEDS: RESP: ALBUTEROL 2.5 MG/IPRATROPIUM 0.5 MG NEB (SCH) NEB ×4 (07:34→20:45)
[2017-09-11] MEDS: METOCLOPRAMIDE HCL 10 MG TAB PO SCH ×4 (08:43→20:38)
[2017-09-11] MEDS: METOPROLOL TARTRATE 50 MG TAB PO SCH (08:43)
[2017-09-11] MEDS: PANTOPRAZOLE SOD 40 MG DELAYED RELEASE TAB PO SCH (08:43)
[2017-09-11] MEDS: FAMOTIDINE 20 MG TAB PO SCH ×2 (08:43→20:38)
[2017-09-11] MEDS: CYCLOBENZAPRINE HCL 10 MG TAB PO SCH ×2 (08:44→20:38)
[2017-09-11] MEDS: OXYBUTYNIN CHLORIDE 5 MG TAB PO SCH (08:44)
[2017-09-11] MEDS: INSULIN ASPART SUPPLEMENTAL SCALE SQ SCH ×4 (08:46→21:21)
[2017-09-11] MEDS ORDERED: NON-FORMULARY DRUG (Lansoprazole (Prevacid) 30 MG) PO SCH (09:00)
[2017-09-11 10:01] LABS: AUTOMATED NEUTROPHIL # 17.3 TH/MM3 (1.8-7.7); BASOPHIL % 0.1 % (0.0-2.0); HEMATOCRIT 39.4 % (35.0-46.0); HEMOGLOBIN 12.5 GM/DL (11.6-15.3); LYMPH % 4.8 % (9.0-44.0); LYMPHOCYTE # 0.9 TH/MM3 (1.0-4.8); MEAN CELL VOLUME 83.2 FL (80.0-100.0); MEAN CORPUSCULAR HEMOGLOBIN 26.5 PG (27.0-34.0); MEAN CORPUSCULAR HGB CONC 31.9 % (32.0-36.0); MEAN PLATELET VOLUME 8.6 FL (7.0-11.0); MONO % 2.3 % (0.0-8.0); MONOCYTE # 0.4 TH/MM3 (0-0.9); NEUT % 92.8 % (16.0-70.0); PLATELET COUNT 304 TH/MM3 (150-450); RED BLOOD COUNT 4.73 MIL/MM3 (4.00-5.30); WHITE BLOOD COUNT 18.6 TH/MM3 (4.0-11.0)
[2017-09-11 10:25] LABS: BICARBONATE 19.2 MEQ/L (21.0-32.0); CALCIUM 9.2 MG/DL (8.5-10.1); CREATININE 0.95 MG/DL (0.50-1.00); MAGNESIUM 1.9 MG/DL (1.5-2.5)
--- NOTE | 2017-09-11 10:37 | HHI.PR ---
Subjective Remarks feels a little better. ambulated to bathroom. clear sputum noted. Objective Vitals nad heart reg lung azael rhonci/wheeze but improved abd s/nt/nabs ext no edema Vital Signs Date Time Temp Pulse Resp B/P (MAP) Pulse Ox O2 Delivery O2 Flow Rate FiO2 09/11/17 08:00 97.3 109 20 163/85 (111) 93 09/11/17 08:00 108 09/11/17 07:36 93 Nasal Cannula 2.00 09/11/17 04:00 Nasal Cannula 2.00 09/11/17 04:00 97.5 97 17 145/74 (97) 92 09/11/17 03:46 93 09/11/17 00:12 96.0 91 20 131/69 (89) 93 09/11/17 00:12 Nasal Cannula 2.00 09/10/17 23:51 91 09/10/17 21:10 106 09/10/17 20:05 96 Nasal Cannula 3.00 09/10/17 20:00 96.0 105 22 158/98 (118) 95 09/10/17 20:00 Nasal Cannula 2.00 09/10/17 19:16 09/10/17 17:09 95 18 148/67 (94) 94 Nasal Cannula 2.00 09/10/17 15:20 22 95 Nasal Cannula 2.00 09/10/17 14:52 98 Nasal Cannula 2.00 09/10/17 14:25 94 Nasal Cannula 2.00 09/10/17 14:22 94 09/10/17 14:22 97.7 108 22 149/76 (100) 92 Room Air Result Diagram: 09/11/17 0922 09/11/17 0922 Imaging Last Impressions Chest X-Ray 09/10/17 1425 Signed Impressions: CONCLUSION: Minimal basilar atelectasis. A/P Problem List: (1) Acute bronchitis ICD Codes: J20.9 - Acute bronchitis, unspecified Status: Acute Plan: Acute bronchitis Reactive airway disease - Pt is a 62 y/o WF with diabetes, unable to tolerate OHA, HTN, hyperlipidemia, and hx of breast cancer. - She [place] [facility] [place] with complaints of worsening SOB, wheezing, cough and congestion x 4 days. Pt has had ill contacts with her and daughter having had similar symptoms but not as severe. - Symptoms began on 09/07/17, with congestion, sore throat, and nonproductive cough. Pt noted some post-tussive vomiting on Tuesday evening but this resolved. No fevers but reports some subjective chills. Pt was started on a Z-pack 3 days ago without improvement in her symptoms. She has had increasing wheezing and dyspnea with minimal exertion for the last day or so and seemed to be worsened and this prompted her evaluation in the ED. - In the ED pt was given Solu-Medrol 125mg x one dose and Duonebs x 2 treatments with some improvement. - Labs in the ED noted elevated WBC count of 18.2, Cr 1.14, BUN 10, GFR 48. Her BNP is 13. - D-Dimer was slightly elevated at 1.01. -ED performed CTA chest negative for PE. peribronchial thickening noted. - CXR in the ED noted minimal bibasilar atelectasis. cont iv solumedrol today and possible conversion tomorrow cont scheduled and prn nebs. will likely need to arrange home nebulizer for now cont levaquin elevated wbc persist but felt related to steroids. monitor for fever. increase ssi coverage for steroid hyperglycemia pt will f/u with endocrine after dc for dm management as she has alot of dm med drug intolerances. DVT prophylaxis with SCDs GARRY - Labs are slightly higher than baseline, may be related to some dehydration - Given 500mL @ 50ml/hr x one bag -renal function improving Diabetes mellitus, poorly controlled, unable to tolerate OHA steroid hyperglycemia ssi outpt endocrine f/u HTN - Cont. Metoprolol 50mg in AM and 25mg in PM -resume her mague (2) Reactive airway disease ICD Codes: J45.909 - Unspecified asthma, uncomplicated Status: Acute (3) GARRY (acute kidney injury) ICD Codes: N17.9 - Acute kidney failure, unspecified (4) DM2 (diabetes mellitus, type 2) ICD Codes: E11.9 - Type 2 diabetes mellitus without complications Status: Chronic (5) HTN (hypertension) ICD Codes: I10 - Essential (primary) hypertension Status: Chronic (6) GERD (gastroesophageal reflux disease) ICD Codes: K21.9 - Gastro-esophageal reflux disease without esophagitis Status: Chronic (7) Anxiety ICD Codes: F41.9 - Anxiety disorder, unspecified Status: Chronic Problem Qualifiers (1) Reactive airway disease: Qualified Codes: J45.901 - Unspecified asthma with (acute) exacerbation Ryley Saba MD Sep 11, 2017 10:37
[2017-09-11] MEDS ORDERED: LISINOPRIL 20 MG TAB PO ONE (10:45)
[2017-09-11] MEDS ORDERED: KETOROLAC TROMETHAMINE 30 MG/ML (IVP) VIAL IV PUSH ONE (14:00)
--- NOTE | 2017-09-11 14:08 | EKG ---
Date Performed: 09/10/2017 Time Performed: 13:47:32 PTAGE: 62 years EKG: SINUS TACHYCARDIA POSSIBLE INFERIOR MYOCARDIAL INFARCTION ABNORMAL RHYTHM ECG PREVIOUS TRACING :05/07/2013 @20.14 Since the previous tracing, no significant change noted DOCTOR: John Gonsalves Interpretating Date/Time 09/11/2017 14:06:28
[2017-09-11] MEDS: LEVOFLOXACIN 500 MG PREMIX INJ 100 ML IV SCH (17:29)
[2017-09-11] MEDS: traZODone HCL 50 MG TAB PO SCH (20:37)
[2017-09-11] MEDS: DOCUSATE SODIUM 100 MG CAP PO SCH (20:38)
[2017-09-11] MEDS: LISINOPRIL 20 MG TAB PO SCH (20:38)
[2017-09-11] MEDS: METOPROLOL TARTRATE 25 MG TAB PO SCH (20:38)
[2017-09-11] MEDS: ZOLPIDEM TARTRATE 10 MG TAB PO PRN (20:44)
[2017-09-12] VITALS (14 sets, daily range): BP systolic 104–150; BP diastolic 55–73; PULSE 63–110; RESP 16–20; TEMP 97.2–98.4; O2SAT 91–99
[2017-09-12] MEDS: SODIUM CHLORIDE 0.9% FLUSH 10 ML FLUSH IVF PRN ×2 (00:40→06:06)
[2017-09-12] MEDS: methylPREDNISolone SOD SUCC 125 MG/2 ML VIAL IV PUSH SCH ×3 (00:40→12:45)
[2017-09-12] MEDS: ACETAMINOPHEN/HYDROcodone 325 MG/10 MG TAB PO PRN ×4 (03:12→21:45)
[2017-09-12] MEDS: RESP: ALBUTEROL 2.5 MG/IPRATROPIUM 0.5 MG NEB (SCH) NEB ×4 (07:43→21:02)
[2017-09-12 08:16] LABS: AUTOMATED NEUTROPHIL # 23.5 TH/MM3 (1.8-7.7); BASOPHIL # 0.1 TH/MM3 (0-0.2); BASOPHIL % 0.5 % (0.0-2.0); EOSINOPHIL # 0.2 TH/MM3 (0-0.4); EOSINOPHIL % 0.7 % (0.0-4.0); HEMATOCRIT 38.5 % (35.0-46.0); HEMOGLOBIN 12.6 GM/DL (11.6-15.3); LYMPH % 6.1 % (9.0-44.0); LYMPHOCYTE # 1.6 TH/MM3 (1.0-4.8); MEAN CELL VOLUME 83.1 FL (80.0-100.0); MEAN CORPUSCULAR HEMOGLOBIN 27.2 PG (27.0-34.0); MEAN CORPUSCULAR HGB CONC 32.7 % (32.0-36.0); MEAN PLATELET VOLUME 9.8 FL (7.0-11.0); MONO % 3.5 % (0.0-8.0); MONOCYTE # 0.9 TH/MM3 (0-0.9); NEUT % 89.2 % (16.0-70.0); PLATELET COUNT 391 TH/MM3 (150-450); RED BLOOD COUNT 4.64 MIL/MM3 (4.00-5.30); RED CELL DISTRIBUTION WIDTH 16.1 % (11.6-17.2); WHITE BLOOD COUNT 26.3 TH/MM3 (4.0-11.0)
[2017-09-12] MEDS: CYCLOBENZAPRINE HCL 10 MG TAB PO SCH ×2 (08:20→20:57)
[2017-09-12] MEDS: OXYBUTYNIN CHLORIDE 5 MG TAB PO SCH (08:20)
[2017-09-12] MEDS: METOCLOPRAMIDE HCL 10 MG TAB PO SCH ×4 (08:20→20:58)
[2017-09-12] MEDS: PANTOPRAZOLE SOD 40 MG DELAYED RELEASE TAB PO SCH (08:20)
[2017-09-12] MEDS: METOPROLOL TARTRATE 50 MG TAB PO SCH (08:20)
[2017-09-12] MEDS: LISINOPRIL 20 MG TAB PO SCH ×2 (08:20→20:59)
[2017-09-12] MEDS: FAMOTIDINE 20 MG TAB PO SCH ×2 (08:20→20:58)
[2017-09-12] MEDS: INSULIN ASPART SUPPLEMENTAL SCALE SQ SCH ×4 (08:21→21:04)
[2017-09-12 09:27] LABS: BANDS 5 % (0-6); LYMPHOCYTES 5 % (9-44); MONOCYTES 1 % (0-8); NEUTROPHIL # MANUAL DIFF 24.7 TH/MM3 (1.8-7.7); POLYS (SEG NEUTROPHILS) 89 % (16-70)
[2017-09-12] MEDS ORDERED: GADODIAMIDE PF 287 MG/ML 5 ML VIAL (for RAD MRI) IVCONTRAST ONE (12:05)
--- NOTE | 2017-09-12 12:36 | RADRPT ---
EXAM DATE: 09/12/2017 12:24 PM EDT AGE/SEX: 62 years / Female INDICATIONS: Metastatic disease. History of breast cancer and currently having headaches daily fo r greater then six months. CLINICAL DATA: This is the patient's initial encounter. Patient reports that signs and symptoms have been present for 4 - 6 months and indicates a pain score of 9/10. MEDICAL/SURGICAL HISTORY: Carcinoma, breast. Hypertension. Diabetes mellitus type II. Hystere ctomy. Tubal ligation. Total knee replacement, right. Mastectomy, Nasal sx. COMPARISON: POI, MR BRAIN W AND W/O CONTRAST, 04/09/2015. . TECHNIQUE: Multiplanar, multisequence examination of the brain was performed without and with 23 ml O mniscan (gadodiamide) contrast as a single exam dose. FINDINGS: Cerebrum: The ventricles are normal for age. No evidence of midline shift, mass lesion, hemorrhage or acute infarction. No extraaxial fluid collections are seen. The pituitary gland and suprasellar cistern are normal in configuration. White Matter: No significant signal abnormalities are seen in the white matter. Posterior Fossa: The cerebellum and brainstem are intact. The 4th ventricle is midline. The cerebel lopontine angle is unremarkable. The cerebellar tonsils are normal in position. Diffusion Imaging: No focal areas of restricted diffusion are seen. No evidence of acute infarction . Extracranial: The visualized portions of the orbits and paranasal sinuses are unremarkable. Post Contrast: No abnormal areas of parenchymal or dural enhancement. No evidence of blood-brain ba rrier breakdown. No enhancing mass occupying lesions. No significant changes compared to 04/09/2015. CONCLUSION: 1. Unremarkable and stable MRI of the brain. 2. Specifically, no evidence of brain metastatic disease is seen at this time. Electronically signed by: Akash Restrepo MD 09/12/2017 12:35 PM EDT
[2017-09-12] MEDS: LORazepam 1 MG TAB PO PRN ×2 (12:49→21:03)
--- NOTE | 2017-09-12 13:41 | HHI.PR ---
Subjective Remarks SOB is improved from admission. Pt states that she is having occasional episodes of dizziness with activity. These episodes are associated with b/l jaw pain and diaphoresis. Pt states that approximately 5 episodes this calendar year. Pt's last episode occurred approximately 2 weeks ago while shopping at [employer]. Objective Vitals Vital Signs Date Time Temp Pulse Resp B/P (MAP) Pulse Ox O2 Delivery O2 Flow Rate FiO2 09/12/17 12:00 97.2 85 20 150/70 (96) 92 09/12/17 10:01 96 Room Air 09/12/17 08:36 Nasal Cannula 2.00 09/12/17 08:00 98.4 96 20 133/67 (89) 94 09/12/17 07:49 94 09/12/17 07:46 96 Nasal Cannula 2.00 09/12/17 04:00 Nasal Cannula 2.00 09/12/17 04:00 98.0 94 16 117/56 (76) 95 09/12/17 03:44 96 09/12/17 00:00 Nasal Cannula 2.00 09/12/17 00:00 98.1 100 16 104/55 (71) 94 09/11/17 23:45 97 09/11/17 21:04 96 Nasal Cannula 2.00 09/11/17 20:00 98.0 112 17 121/65 (83) 95 09/11/17 20:00 Nasal Cannula 2.00 09/11/17 19:47 116 09/11/17 16:00 101 09/11/17 16:00 97.2 105 20 146/65 (92) 95 Result Diagram: 09/12/17 0730 09/11/17 0922 Imaging Last Impressions Chest X-Ray 09/10/17 1425 Signed Impressions: CONCLUSION: Minimal basilar atelectasis. Objective Remarks GENERAL: This is a well-nourished, well-developed patient, in no apparent distress. CARDIOVASCULAR: Regular rate and rhythm without murmurs, gallops, or rubs. RESPIRATORY: Clear to auscultation. Breath sounds equal bilaterally. No wheezes , rales, or rhonchi. GASTROINTESTINAL: Abdomen soft, non-tender, nondistended. Normal active bowel sounds MUSCULOSKELETAL: Extremities without clubbing, cyanosis, or edema. NEURO: Alert & Oriented x4 to person, place, time, situation. Moves all ext x4 A/P Problem List: (1) Acute bronchitis ICD Codes: J20.9 - Acute bronchitis, unspecified Status: Acute Plan: Acute bronchitis Reactive airway disease - Pt is a 62 y/o WF with diabetes, unable to tolerate OHA, HTN, hyperlipidemia, and hx of breast cancer. - She reported to the ED at [facility] [place] on 09/10/17 with complaints of worsening SOB, wheezing, cough and congestion x 4 days. Pt has had ill contacts with her and daughter having had similar symptoms but not as severe. - Symptoms began on 09/07/17, with congestion, sore throat, and nonproductive cough. Pt noted some post-tussive vomiting on Tuesday evening but this resolved. No fevers but reports some subjective chills. Pt was started on a Z-pack 3 days ago without improvement in her symptoms. She has had increasing wheezing and dyspnea with minimal exertion for the last day or so and seemed to be worsened and this prompted her evaluation in the ED. - In the ED pt was given Solu-Medrol 125mg x one dose and Duonebs x 2 treatments with some improvement. - Labs in the ED noted elevated WBC count of 18.2, Cr 1.14, BUN 10, GFR 48. Her BNP is 13. - D-Dimer was slightly elevated at 1.01. -ED performed CTA chest negative for PE. peribronchial thickening noted. - CXR in the ED noted minimal bibasilar atelectasis. - improving - change solumedrol to PO prednisone - levaquin - duonebs scheduled and prn - marked WBC elevation is likely d/t steroids/acute infection. - Pt should have repeat WBC in 3 weeks to ensure normalization of leukocytosis. - start levemir 5 units BID for steroid hyperglycemia - continue SSI - Pt has had difficulties outpt tolerating PO hypoglycemic agents - Pt has appointment with Endocrinology 09/13/17 - DVT prophylaxis with SCDs - supportive care Dizziness with jaw pain/diaphoresis - Not an issue at this admission, but pt is have occasional episodes with last one 2 weeks ago - Pt/ (Dr. Ji) report negative Lexiscan Fall 1017 at [facility] - Obtain Echocardiogram - continue to observe on telemetry - obtain holter monitor - obtain TSH, free T4, b12, folate - f/u with [facility]iology outpt [facility] - Labs are slightly higher than baseline, may be related to some dehydration - Given 500mL @ 50ml/hr x one bag - renal function improving Diabetes mellitus, poorly controlled, unable to tolerate OHA steroid hyperglycemia - start levemir ssi outpt endocrine f/u HTN - Cont. Metoprolol 50mg in AM and 25mg in PM -resume her mague (2) Reactive airway disease ICD Codes: J45.909 - Unspecified asthma, uncomplicated Status: Acute (3) GARRY (acute kidney injury) ICD Codes: N17.9 - Acute kidney failure, unspecified (4) DM2 (diabetes mellitus, type 2) ICD Codes: E11.9 - Type 2 diabetes mellitus without complications Status: Chronic (5) HTN (hypertension) ICD Codes: I10 - Essential (primary) hypertension Status: Chronic (6) GERD (gastroesophageal reflux disease) ICD Codes: K21.9 - Gastro-esophageal reflux disease without esophagitis Status: Chronic (7) Anxiety ICD Codes: F41.9 - Anxiety disorder, unspecified Status: Chronic Problem Qualifiers (1) Reactive airway disease: Qualified Codes: J45.901 - Unspecified asthma with (acute) exacerbation Truman Hoang DO Sep 12, 2017 13:41
[2017-09-12] MEDS ORDERED: MAGNESIUM HYDROXIDE SUSP 30 ML CUP PO PRN (14:00)
[2017-09-12] MEDS ORDERED: NEBULIZER1 MI1 ×2 (14:27→17:09)
--- NOTE | 2017-09-12 15:31 | RADRPT ---
EXAM DATE: 09/12/2017 3:01 PM EDT AGE/SEX: 62 years / Female INDICATIONS: Syncope. CLINICAL DATA: This is the patient's initial encounter. Patient reports that signs and symptoms have been present for 1 day and indicates a pain score of 0/10. MEDICAL/SURGICAL HISTORY: . Carcinoma, breast. Gastroesophageal reflux disease. Diabetes. . Hy sterectomy. Mastectomy. COMPARISON: No prior exams available for comparison. VELOCITY PARAMETERS: ICA/CCA Ratio: Right 0.8 , Left 0.8 ICA: Right 60.7 cm/sec, Left 74.9 cm/sec CCA: Right 78.8 cm/sec, Left 90.3 cm/sec ECA: Right 76.2 cm/sec, Left 63.6 cm/sec Vertebral: Right 41.8 cm/sec antegrade, Left 45.2 cm/sec antegrade FINDINGS: Right Carotid: No significant stenosis is visualized. The waveforms are within normal limits. Left Carotid: No significant stenosis is visualized. The waveforms are within normal limits. Other: None. CONCLUSION: Negative carotid ultrasound examination. A significant stenosis is not seen. Electronically signed by: Johnny Monsivais MD 09/12/2017 3:29 PM EDT
[2017-09-12 16:46] LABS: FOLATE 13.3 NG/ML (3.1-17.5); FREE T4 1.31 NG/DL (0.76-1.46)
--- NOTE | 2017-09-12 17:01 | ECHRPT ---
Indication: CONCLUSIONS Normal left ventricular size. Mild concentric left ventricular hypertrophy. The left ventricular systolic function is normal with an estimated ejection fraction in the range of 60-65%. There is trace tricuspid valve regurgitation. The estimated pulmonary arterial pressure is 41.6 mmHg. BP: / HR: Rhythm: Sinus MEASUREMENTS (Male / Female) Normal Values Technical Quality:Fair 2D ECHO LV Diastolic Diameter PLAX 3.9 cm 4.2 - 5.9 / 3.9 - 5.3 cm LV Systolic Diameter PLAX 2.6 cm IVS Diastolic Thickness 1.1 cm 0.6 - 1.0 / 0.6 - 0.9 cm LVPW Diastolic Thickness 1.1 cm 0.6 - 1.0 / 0.6 - 0.9 cm LV Relative Wall Thickness 0.6 RV Internal Dim ED PLAX 3.0 cm LVOT Diameter 1.7 cm Aortic Root Diameter 2.7 cm LA Systolic Diameter LX 3.5 cm 3.0 - 4.0 / 2.7 - 3.8 cm M-MODE AV Cusp Separation MM 1.6 cm DOPPLER AV Peak Velocity 127.0 cm/s AV Peak Gradient 6.5 mmHg AV Mean Gradient 4.0 mmHg AV Velocity Time Integral 23.6 cm LVOT Peak Velocity 85.7 cm/s LVOT Peak Gradient 2.9 mmHg LVOT Velocity Time Integral 16.2 cm AV Area Cont Eq vti 1.6 cm AV Area Cont Eq pk 1.5 cm Mitral E Point Velocity 102.0 cm/s Mitral A Point Velocity 72.1 cm/s Mitral E to A Ratio 1.4 LV E' Lateral Velocity 12.2 cm/s Mitral E to LV E' Lateral Ratio 8.4 LV E' Septal Velocity 10.7 cm/s Mitral E to LV E' Septal Ratio 9.5 TR Peak Velocity 281.0 cm/s TR Peak Gradient 31.6 mmHg Right Atrial Pressure 10.0 mmHg Pulmonary Artery Systolic Pressu 41.6 mmHg Right Ventricular Systolic Press 41.6 mmHg PV Peak Velocity 56.4 cm/s PV Peak Gradient 1.3 mmHg FINDINGS LEFT VENTRICLE Normal left ventricular size. Mild concentric left ventricular hypertrophy. The left ventricular systolic function is normal with an estimated ejection fraction in the range of 60-65%. RIGHT VENTRICLE Normal right ventricular size and systolic function. LEFT ATRIUM The left atrial size is normal. RIGHT ATRIUM The right atrial size is normal. ATRIAL SEPTUM No atrial level shunt is demonstrated by color flow Doppler interrogation. AORTA The aortic root and proximal ascending aorta are normal in size on limited imaging. MITRAL VALVE Structurally normal mitral valve. No mitral valve stenosis or regurgitation. AORTIC VALVE Trileaflet aortic valve. No aortic valve stenosis or regurgitation. TRICUSPID VALVE There is trace tricuspid valve regurgitation. The estimated pulmonary arterial pressure is 41.6 mmHg. PULMONARY VALVE No pulmonary valve regurgitation or stenosis. VESSELS The inferior vena cava is normal in size. PERICARDIUM No pericardial effusion. A prominent epicardial fat pad is present. Epi Crane MD, FACC (Electronically Signed) Final Date:12 September 2017 16:59
[2017-09-12] MEDS ORDERED: LEVOFLOXACIN 500 MG TAB PO SCH (18:00)
[2017-09-12] MEDS: traZODone HCL 50 MG TAB PO SCH (20:57)
[2017-09-12] MEDS: METOPROLOL TARTRATE 25 MG TAB PO SCH (20:59)
[2017-09-12] MEDS: predniSONE 10 MG TAB PO SCH (20:59)
[2017-09-12] MEDS ORDERED: DOCUSATE SODIUM 100 MG CAP PO SCH (21:00)
[2017-09-12] MEDS: ZOLPIDEM TARTRATE 10 MG TAB PO PRN (21:03)
[2017-09-12] MEDS: INSULIN DETEMIR 100 UNITS/ML VIAL SQ SCH (21:04)
[2017-09-13] VITALS: PULSE 84
[2017-09-13 03:44] VITALS: BP 119/61; PULSE 94; RESP 18; TEMP 97.8; O2SAT 91
[2017-09-13 04:00] VITALS: PULSE 84
[2017-09-13 07:50] VITALS: BP 116/58; PULSE 100; RESP 20; TEMP 97.7; O2SAT 97
[2017-09-13 08:00] VITALS: PULSE 94
[2017-09-13] MEDS: RESP: ALBUTEROL 2.5 MG/IPRATROPIUM 0.5 MG NEB (SCH) NEB (08:17)
[2017-09-13 08:19] VITALS: O2SAT 93
[2017-09-13] MEDS: FAMOTIDINE 20 MG TAB PO SCH (08:35)
[2017-09-13] MEDS: LISINOPRIL 20 MG TAB PO SCH (08:36)
[2017-09-13] MEDS: PANTOPRAZOLE SOD 40 MG DELAYED RELEASE TAB PO SCH (08:36)
[2017-09-13] MEDS: predniSONE 10 MG TAB PO SCH (08:37)
[2017-09-13] MEDS: CYCLOBENZAPRINE HCL 10 MG TAB PO SCH (08:37)
[2017-09-13] MEDS: METOPROLOL TARTRATE 50 MG TAB PO SCH (08:37)
[2017-09-13] MEDS: METOCLOPRAMIDE HCL 10 MG TAB PO SCH (08:37)
[2017-09-13] MEDS: OXYBUTYNIN CHLORIDE 5 MG TAB PO SCH (08:38)
[2017-09-13] MEDS: INSULIN DETEMIR 100 UNITS/ML VIAL SQ SCH (08:41)
[2017-09-13] MEDS: INSULIN ASPART SUPPLEMENTAL SCALE SQ SCH (08:41)
--- NOTE | 2017-09-13 09:48 | HHI.PR ---
Subjective Remarks Pt has NO new complaints, and she is eager for discharge to home. Pt's SOB is much improved from admission. Pt denies dizziness in the last 24 hours. Pt also denies jaw pain, chest pain, diaphoresis, and n/v. Objective Vitals Vital Signs Date Time Temp Pulse Resp B/P (MAP) Pulse Ox O2 Delivery O2 Flow Rate FiO2 09/13/17 08:19 93 09/13/17 08:00 94 09/13/17 08:00 94 09/13/17 08:00 Room Air 2.00 21 09/13/17 07:50 97.7 100 20 116/58 (77) 97 09/13/17 04:00 84 09/13/17 03:44 97.8 94 18 119/61 (80) 91 09/13/17 00:00 84 09/12/17 23:10 98.1 91 17 145/73 (97) 93 09/12/17 21:12 Room Air 09/12/17 21:02 99 21 09/12/17 20:21 97.9 108 16 132/68 (89) 91 09/12/17 20:00 110 09/12/17 16:00 98.3 79 20 140/73 (95) 93 09/12/17 15:45 81 09/12/17 12:00 97.2 85 20 150/70 (96) 92 09/12/17 11:30 81 09/12/17 10:01 96 Room Air Result Diagram: 09/12/17 0730 09/11/17 0922 Imaging Last Impressions Carotid Artery Ultrasound 09/12/17 0000 Signed Impressions: CONCLUSION: Negative carotid ultrasound examination. A significant stenosis is not seen. Brain MRI 09/12/17 0000 Signed Impressions: CONCLUSION: 1. Unremarkable and stable MRI of the brain. 2. Specifically, no evidence of brain metastatic disease is seen at this time. Chest X-Ray 09/10/17 1425 Signed Impressions: CONCLUSION: Minimal basilar atelectasis. CT Angiography 09/10/17 0000 Signed Impressions: CONCLUSION: 1. Negative for pulmonary embolus. Calcified granuloma in left lung. There is mild peribronchial thickening noted bilaterally. Objective Remarks GENERAL: This is a well-nourished, well-developed patient, in no apparent distress. CARDIOVASCULAR: Regular rate and rhythm without murmurs, gallops, or rubs. RESPIRATORY: Clear to auscultation. Breath sounds equal bilaterally. No wheezes , rales, or rhonchi. GASTROINTESTINAL: Abdomen soft, non-tender, nondistended. Normal active bowel sounds MUSCULOSKELETAL: Extremities without clubbing, cyanosis, or edema. NEURO: Alert & Oriented x4 to person, place, time, situation. Moves all ext x4 A/P Problem List: (1) Acute bronchitis ICD Codes: J20.9 - Acute bronchitis, unspecified Status: Acute Plan: Acute bronchitis Reactive airway disease - Pt is a 62 y/o WF with diabetes, unable to tolerate OHA, HTN, hyperlipidemia, and hx of breast cancer. - She reported to the ED at [facility] [place] [place] on 09/10/17 with complaints of worsening SOB, wheezing, cough and congestion x 4 days. Pt has had ill contacts with her and daughter having had similar symptoms but not as severe. - Symptoms began on 09/07/17, with congestion, sore throat, and nonproductive cough. Pt noted some post-tussive vomiting on Tuesday evening but this resolved. No fevers but reports some subjective chills. Pt was started on a Z-pack 3 days ago without improvement in her symptoms. She has had increasing wheezing and dyspnea with minimal exertion for the last day or so and seemed to be worsened and this prompted her evaluation in the ED. - In the ED pt was given Solu-Medrol 125mg x one dose and Duonebs x 2 treatments with some improvement. - Labs in the ED noted elevated WBC count of 18.2, Cr 1.14, BUN 10, GFR 48. Her BNP is 13. - D-Dimer was slightly elevated at 1.01. -ED performed CTA chest negative for PE. peribronchial thickening noted. - CXR in the ED noted minimal bibasilar atelectasis. 09/13/17 - Pt is clinically improved and eager for discharge - D/C to home today - Case Mgmt instructed 09/12/17 to arrange home nebulizer - levaquin 500mg x 3d - prednisone taper - duonebs q6h and prn - marked WBC elevation is likely d/t steroids/acute infection. - Pt should have repeat WBC in 3 weeks to ensure normalization of leukocytosis. - Pt is to f/u with her PCP, Dr. Isidro Ji, in 1 week - see discharge orders Dizziness with jaw pain/diaphoresis - Not an issue at this admission, but pt is have occasional episodes with last one 2 weeks ago - Pt/ (Dr. Ji) report negative Lexiscan Fall 1017 at [facility] - Echocardiogram (09/12/17) --> EF 60-65% - telemetry --> NSR - holter monitor --> pt declines. Recommended to obtain study outpt. - TSH, free T4, b12, folate --> WNL. RPR ordered but not obtained. - free T4 0.066 (09/12/17) - Pt should have repeat TSH & free T4 outpt in 4-6 weeks. - f/u with [facility] Cardiology outpt G[facility] - Labs are slightly higher than baseline, may be related to some dehydration - Given 500mL @ 50ml/hr x one bag - 1.14 --> 0.95 (09/11) Diabetes mellitus, - poorly controlled, unable to tolerate OHA - steroid hyperglycemia - start levemir. This could be increased. - Pt started only at 5 units BID. - some of elevated blood sugars d/t prednisone - Pt has 2pm appointment to see Endocrinology, Dr. Schmitz this afternoon. () HTN - Cont. Metoprolol 50mg in AM and 25mg in PM -resume her mague (2) Reactive airway disease ICD Codes: J45.909 - Unspecified asthma, uncomplicated Status: Acute (3) GARRY (acute kidney injury) ICD Codes: N17.9 - Acute kidney failure, unspecified (4) DM2 (diabetes mellitus, type 2) ICD Codes: E11.9 - Type 2 diabetes mellitus without complications Status: Chronic (5) HTN (hypertension) ICD Codes: I10 - Essential (primary) hypertension Status: Chronic (6) GERD (gastroesophageal reflux disease) ICD Codes: K21.9 - Gastro-esophageal reflux disease without esophagitis Status: Chronic (7) Anxiety ICD Codes: F41.9 - Anxiety disorder, unspecified Status: Chronic Problem Qualifiers (1) Acute bronchitis: Qualified Codes: J20.9 - Acute bronchitis, unspecified (2) Reactive airway disease: Qualified Codes: J45.901 - Unspecified asthma with (acute) exacerbation Truman Hoang DO Sep 13, 2017 09:48
[2017-09-13] MEDS ORDERED: Albuterol-Ipratropium Neb NEB ×2 (09:53)
[2017-09-13] MEDS ORDERED: LEVA500T33 PO (09:53)
[2017-09-13] MEDS ORDERED: PRED20 PO (09:56)
--- NOTE | 2017-09-13 10:04 | HHI.DCPOC ---
Discharge Care Plan Diagnosis: (1) Acute bronchitis (2) DM2 (diabetes mellitus, type 2) (3) Dizziness, nonspecific Goals to Promote Your Health * To prevent worsening of your condition and complications * To maintain your health at the optimal level Directions to Meet Your Goals Take your medications as prescribed Follow your dietary instruction Follow activity as directed Keep your appointments as scheduled Take your immunizations and boosters as scheduled If your symptoms worsen call your PCP, if no PCP go to Urgent Care Center or Emergency Room Smoking is Dangerous to Your Health. Avoid second hand smoke Call the 24-hour hour crisis hotline for domestic abuse at 1) f/u with PCP, Dr. Isidro Ji, in 1 week 2) f/u with Endocrinology, Dr. Schmitz, later today 09/13/17 3) f/u with Cardiology, Truman Leong DO Sep 13, 2017 10:04
--- NOTE | 2017-09-13 10:08 | HHI.DS ---
Discharge Summary Admission Date Sep 10, 2017 at 16:52 Admitting Diagnosis Bronchitis/Reactive airway disease (1) Acute bronchitis ICD Codes: J20.9 - Acute bronchitis, unspecified Status: Acute (2) Reactive airway disease ICD Codes: J45.909 - Unspecified asthma, uncomplicated Status: Acute (3) GARRY (acute kidney injury) ICD Codes: N17.9 - Acute kidney failure, unspecified (4) DM2 (diabetes mellitus, type 2) ICD Codes: E11.9 - Type 2 diabetes mellitus without complications Status: Chronic (5) HTN (hypertension) ICD Codes: I10 - Essential (primary) hypertension Status: Chronic (6) GERD (gastroesophageal reflux disease) ICD Codes: K21.9 - Gastro-esophageal reflux disease without esophagitis Status: Chronic (7) Anxiety ICD Codes: F41.9 - Anxiety disorder, unspecified Status: Chronic Brief History Mrs. Ji is a pleasant 62 y/o WF with diabetes unable to tolerate OHA, HTN, hyperlipidemia, and hx of breast cancer. [place] [facility] [place] complaints of worsening SOB, wheezing, cough and congestion. She reports that her and daughter have had similar symptoms but not as severe. She notes that her symptoms began on 09/07/17, with congestion , sore throat, and nonproductive cough. Pt noted some post-tussive vomiting on Tuesday evening but this resolved. She denies any fevers but reports some subjective chills. Pt was started on a Z-pack 3 days ago without improvement in her symptoms. She has had increasing wheezing and dyspnea with minimal exertion for the last day or so and seemed to be worsened and this prompted her evaluation in the ED. In the ED pt was given Solu-Medrol 125mg x one dose and Duonebs x 2 treatments with some improvement. She is not currently wheezing audibly with talking like she was prior to coming to the ED. Pts labs in the ED noted elevated WBC count of 18.2, Cr 1.14, BUN 10, GFR 48. Her BNP is 13. D- Dime was slightly elevated at 1.01. CXR in the ED noted minimal bibasilar atelectasis. Pulmonary CTA is ordered by the ED. CBC/BMP: 09/12/17 0730 09/11/17 0922 Significant Findings Laboratory Tests Test 09/10/17 14:30 09/11/17 09:22 09/12/17 07:30 09/12/17 15:30 White Blood Count 18.2 TH/MM3 (4.0-11.0) 18.6 TH/MM3 (4.0-11.0) 26.3 TH/MM3 (4.0-11.0) Mean Corpuscular Hemoglobin 26.4 PG (27.0-34.0) 26.5 PG (27.0-34.0) Mean Corpuscular Hemoglobin Concent 31.5 % (32.0-36.0) 31.9 % (32.0-36.0) Neutrophils (%) (Auto) 74.8 % (16.0-70.0) 92.8 % (16.0-70.0) 89.2 % (16.0-70.0) Eosinophils (%) (Auto) 4.2 % (0.0-4.0) Neutrophils # (Auto) 13.6 TH/MM3 (1.8-7.7) 17.3 TH/MM3 (1.8-7.7) 23.5 TH/MM3 (1.8-7.7) Monocytes # (Auto) 1.1 TH/MM3 (0-0.9) Eosinophils # (Auto) 0.8 TH/MM3 (0-0.4) D-Dimer Quantitative (PE/DVT) 1.01 MG/L FEU (0.00-0.50) Creatinine 1.14 MG/DL (0.50-1.00) Random Glucose 327 MG/DL (74-106) 322 MG/DL (74-106) Alkaline Phosphatase 124 U/L (45-117) Sodium Level 134 MEQ/L (136-145) 134 MEQ/L (136-145) Estimat Glomerular Filtration Rate 48 ML/MIN (>89) 60 ML/MIN (>89) Lactic Acid Level 2.7 mmol/L (0.4-2.0) Troponin I LESS THAN 0.02 NG/ML Lymphocytes (%) (Auto) 4.8 % (9.0-44.0) 6.1 % (9.0-44.0) Lymphocytes # (Auto) 0.9 TH/MM3 (1.0-4.8) Carbon Dioxide Level 19.2 MEQ/L (21.0-32.0) Neutrophils % (Manual) 89 % (16-70) Lymphocytes % 5 % (9-44) Neutrophils # (Manual) 24.7 TH/MM3 (1.8-7.7) Thyroid Stimulating Hormone 3rd Gen 0.066 uIU/ML (0.358-3.740) PE at Discharge GENERAL: This is a well-nourished, well-developed patient, in no apparent distress. CARDIOVASCULAR: Regular rate and rhythm without murmurs, gallops, or rubs. RESPIRATORY: Clear to auscultation. Breath sounds equal bilaterally. No wheezes , rales, or rhonchi. GASTROINTESTINAL: Abdomen soft, non-tender, nondistended. Normal active bowel sounds MUSCULOSKELETAL: Extremities without clubbing, cyanosis, or edema. NEURO: Alert & Oriented x4 to person, place, time, situation. Moves all ext x4 Pt Condition on Discharge: Stable Discharge Disposition: Discharge Home Discharge Instructions DIET: Follow Instructions for: Heart Healthy Diet, Diabetic Diet Activities you can perform: Regular-No Restrictions Activities to Avoid: Strenuous Activity Truman Hoang DO Sep 13, 2017 10:08
[2017-09-13] MEDS: ACETAMINOPHEN/HYDROcodone 325 MG/10 MG TAB PO PRN (11:31)
== END 2017-09-13 11:48 | disposition home or self-care (01) | DRG 202 ==
LOC: NEPC 14:03 → NEDA 16:52 → N04B 19:25
PROVIDERS: ADMIT Hospitalist; ATTEND Hospitalist
DX: J20.9 Acute bronchitis, unspecified (principal); J45.901 Unspecified asthma with (acute) exacerbation; N17.9 Acute kidney failure, unspecified; E11.65 Type 2 diabetes mellitus with hyperglycemia; K21.9 Gastro-esophageal reflux disease without esophagitis; J98.11 Atelectasis; I10 Essential (primary) hypertension; R06.03 Acute respiratory distress; R00.0 Tachycardia, unspecified; R09.02 Hypoxemia; T38.0X5A Adverse effect of glucocorticoids and synthetic analogues, initial encounter; M19.90 Unspecified osteoarthritis, unspecified site; F32.9 Major depressive disorder, single episode, unspecified; F41.9 Anxiety disorder, unspecified; Z85.3 Personal history of malignant neoplasm of breast; Z88.5 Allergy status to narcotic agent; Z90.13 Acquired absence of bilateral breasts and nipples; Z96.651 Presence of right artificial knee joint
CPT/HCPCS: 70553; 71045; 71275; 76937; 80048; 80053; 82140; 82550; 82552; 82607; 82746; 82948; 83605; 83735; 83880; 84439; 84443; 84484; 85007; 85025; 85027; 85379; 85610; 85730; 86592; 93005; 93306; 93880; 94640; 94664; 96374; A9579; J1815; J1885; J1956; J2930; J7040; J7512; Q9967